=== PATIENT | female | born 1950 | race African-American/Black ===

== ENCOUNTER 2017-06-29 23:47 | Inpatient (IN) | payer MEDICARE, SELFPAY ==
[~2017-06-29] VITALS: Ht 165.1 cm; Wt 65.8 kg
[2017-06-30] VITALS (8 sets, daily range): BP systolic 103–161; BP diastolic 56–109
[2017-06-30] MEDS ORDERED: Haloperidol 5mg/ml Inj IM ONE (00:30)
[2017-06-30] MEDS ORDERED: LORazepam Inj 2mg/ml 1ml IM ONE (00:30)
[2017-06-30 02:26] LABS: HEMATOCRIT 42.1 % (37.0-47.0); HEMOGLOBIN 13.9 G/DL (12.0-16.0); MEAN CORPUSCULAR VOLUME 93 FL (80-99); PLATELET COUNT 77 K/UL (150-450); RED BLOOD COUNT 4.55 M/UL (4.20-5.40)
[2017-06-30 02:39] LABS: ANION GAP 8 mmol/L (5-15); BLOOD UREA NITROGEN 20 mg/dL (7-18); CALCIUM 8.9 MG/DL (8.5-10.1); CARBON DIOXIDE 26 MMOL/L (21-32); CHLORIDE 109 MMOL/L (98-107); CREATININE 1.1 MG/DL (0.55-1.30); POTASSIUM 3.3 MMOL/L (3.5-5.1); SODIUM 143 MMOL/L (136-145)
[2017-06-30 02:41] LABS: APPEARANCE,URINE CLEAR; BILIRUBIN, URINE NEGATIVE (NEGATIVE); COLOR,URINE PALE YELLOW; GLUCOSE, URINE (UA) NEGATIVE (NEGATIVE); KETONES,URINE NEGATIVE (NEGATIVE); LEUKOCYTE ESTERASE ,URINE NEGATIVE (NEGATIVE); NITRITE,URINE NEGATIVE (NEGATIVE); PH,URINE 7 (4.5-8.0); PROTEIN,URINE NEGATIVE (NEGATIVE); UROBILINOGEN,URINE NORMAL MG/DL (0.0-1.0)
[2017-06-30 02:52] LABS: ALANINE AMINOTRANSFERASE 39 U/L (12-78); ALBUMIN 2.5 G/DL (3.4-5.0); ALBUMIN/GLOBULIN RATIO 0.7 (1.0-2.7); ALKALINE PHOSPHATASE 124 U/L (46-116); ASPARTATE AMINO TRANSFERASE 35 U/L (15-37); BILIRUBIN,TOTAL 1.2 MG/DL (0.2-1.0); CREATINE KINASE 54 U/L (26-308)
[2017-06-30 02:54] LABS: BILIRUBIN,DIRECT 0.6 MG/DL (0.0-0.3)
[2017-06-30] MEDS ORDERED: Lactulose 20gm/30ml UDC ORAL ONE (03:00)
[2017-06-30] MEDS ORDERED: AMLODIPINE BES2.5 MG ORAL (03:55)
[2017-06-30] MEDS ORDERED: LEVOTHYROXINE25 MCG ORAL (03:55)
[2017-06-30] MEDS ORDERED: URSODIOL300 MG ORAL (03:55)
[2017-06-30] MEDS ORDERED: MYFORTIC180 MG PO (03:55)
[2017-06-30] MEDS ORDERED: DITROPAN10 MG ORAL (03:55)
[2017-06-30] MEDS ORDERED: ASPIR 8181 MG ORAL (03:55)
[2017-06-30] MEDS ORDERED: LACTULOSE20 GM/301 ORAL (03:57)
[2017-06-30] MEDS ORDERED: QUETIAPINE FUMA25 MG ORAL (03:57)
[2017-06-30] MEDS ORDERED: IRON159 MG PO (03:57)
[2017-06-30] MEDS ORDERED: OMEPRAZOLE40 M1 ORAL (03:58)
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
[2017-06-30] MEDS ORDERED: Morphine Sulfate 2mg/ml Inj IVP PRN (06:15)
[2017-06-30] MEDS ORDERED: Miralax 17gm pkt ORAL PRN (06:15)
[2017-06-30] MEDS ORDERED: Mylanta II UD 30ml ORAL PRN (06:15)
[2017-06-30] MEDS ORDERED: Nitroglycerin Subl 0.4mg tab SL PRN (06:15)
[2017-06-30] MEDS: D5 1/2NS 1,000 ML IV SCH ×2 (06:45→20:54)
[2017-06-30] MEDS: Levothyroxine 25mcg tab ORAL SCH (06:45)
[2017-06-30] MEDS ORDERED: Phytonadione 10 MG in D5W 55 ML IVPB ONE (07:30)
[2017-06-30] MEDS: Lactulose 20gm/30ml UDC ORAL SCH ×3 (09:00→18:00)
[2017-06-30] MEDS: Ursodiol 300mg cap ORAL SCH ×2 (09:00→18:00)
--- NOTE | 2017-06-30 10:33 | Consultation ---
Consult Note Consult Note ID DIC # [id number] MATILDE PAZ M.D. Jun 30, 2017 10:33
[2017-06-30 11:12] LABS: INR 1.1 (0.9-1.1)
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
--- NOTE | 2017-06-30 14:13 | Diagnostic Imaging Report ---
Indication: Shortness of breath Technique: One view of the chest Comparison: none Findings: Heart is enlarged. There are mitral annular calcifications. The aorta is tortuous and calcified. Lungs and pleural spaces are clear Impression: Cardiomegaly No acute process
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
[2017-06-30] MEDS: Aztreonam Inj 1 GM in NS 55 ML IVPB SCH ×2 (16:09→21:05)
--- NOTE | 2017-06-30 16:26 | Diagnostic Imaging Report ---
Indication: Suspected abdominal ascites, abdominal distention Technique: Grayscale images of all 4 quadrants in anticipation of paracentesis Comparison: none Findings: No ascites fluid is demonstrated Impression: Negative for ascites fluid. Paracentesis therefore not performed
--- NOTE | 2017-06-30 20:30 | Consultation ---
DATE OF CONSULTATION: 06/30/2017 INFECTIOUS DISEASE CONSULTATION CONSULTING PHYSICIAN: Stefan Shrestha M.D. REQUESTING PHYSICIAN: Samina Barrera M.D. REASON FOR CONSULTATION: Evaluation of the patient for possible sepsis, urinary tract infection, and antibiotic management. HISTORY OF PRESENT ILLNESS: The patient is a 66-year-old female with multiple medical problems, who was recently admitted at [facility] for urinary tract infection. She also has history of dementia. The patient was admitted to this medical center because of worsening of mental status, possible sepsis, and hepatic encephalopathy. Infectious Disease consultation has been requested for further evaluation of the patient's antibiotic management. PAST MEDICAL HISTORY: 1. Dementia. 2. Seizure disorder. 3. Hypertension. 4. Urinary tract infection. 5. Hypothyroidism. MEDICATIONS: Currently off of antibiotics. ALLERGIES: Azathioprine, cephalexin, cimetidine, and erythromycin. SOCIAL HISTORY: Unknown. FAMILY HISTORY: Not contributing. PHYSICAL EXAMINATION: VITAL SIGNS: Temperature 97.3, pulse , respiratory rate 18, and blood pressure 102/56. HEENT: Mild pale conjunctivae. No icterus. NECK: No lymphadenopathy. CHEST: Clear. HEART: S1 and S2. ABDOMEN: Soft and nontender. EXTREMITIES: No cyanosis. NEUROLOGIC: Confused. LABORATORY AND DIAGNOSTIC DATA: WBC of 5, hemoglobin 13, and platelets 77,000. BUN 20 and creatinine 1.1. ALT and AST unremarkable. Alkaline phosphatase 124. ASSESSMENT: The patient is a 66-year-old female with, 1. Probable sepsis. 2. History of recent urinary tract infection. 3. ? Hepatic encephalopathy. 4. History of primary biliary cirrhosis. PLAN: 1. We will put the patient on Azactam empirically for possible recurrent urinary tract infection despite of UA result. 2. Monitor CBC. 3. Monitor BMP. 4. Monitor cultures . 5. Abdominal ultrasound for evaluation of ascites. 6. Based on the patient's clinical course and labs, we will do further recommendation. Thank you, Dr. León for allowing me to participate in the care of this patient. I will follow the patient with you during this hospitalization. Stefan Shrestha M.D. DR: LUZ ELENA JOB#: [id number] CC: [email or web address]
[2017-07-01] VITALS: BP 129/86
[2017-07-01 04:00] VITALS: BP 139/77
[2017-07-01] MEDS: Aztreonam Inj 1 GM in NS 55 ML IVPB SCH ×3 (05:48→22:09)
[2017-07-01] MEDS: Levothyroxine 25mcg tab ORAL SCH (05:48)
--- NOTE | 2017-07-01 06:45 | History and Physical Report ---
DATE OF ADMISSION: 06/30/2017 CHIEF COMPLAINT: The patient is a 66-year-old female with history of primary biliary stenosis, who presents with a chief complaint of altered mental status. HISTORY OF PRESENT ILLNESS: The patient herself was unable to contribute much to the History and Physical. Much of the History and Physical was obtained from the patient's chart. Apparently, the patient was admitted to [facility] two weeks ago for urinary tract infection. The patient was discharged with Macrobid. The patient was also diagnosed with Lewy body dementia. According to the patient's daughter, her behavior has become increasingly bizarre. When the daughter returned yesterday, she found the house full of smoke as the patient tried to burn boxes in the oven. Today, she left the water running. The patient also put nail danish on her lips. The patient was brought to [place] emergency room by her daughter. The patient was admitted with altered mental status to rule out hepatic encephalopathy. PAST MEDICAL HISTORY: Significant for, 1. Primary biliary stenosis. 2. Lewy body dementia. 3. Hypertension. 4. Bipolar depression. PAST SURGICAL HISTORY: Unknown. CURRENT MEDICATIONS: 1. Amlodipine 2.5 mg p.o. daily. 2. Aspirin 81 mg p.o. daily. 3. Iron sulfate 159 mg p.o. daily. 4. Lactulose 30 g p.o. 3 times daily. 5. Levoxyl 25 mcg p.o. daily. 6. Myfortic 180 mg p.o. daily. 7. Omeprazole 40 mg p.o. daily. 8. Oxybutynin 10 mg p.o. twice daily. 9. Seroquel 25 mg p.o. daily. 10. Ursodiol 300 mg p.o. twice daily. ALLERGIES: 1. Azathioprine. 2. Cephalexin. 3. Cimetidine. 4. Erythromycin. SOCIAL HISTORY: The patient lives at home with her daughter. The patient denies tobacco or alcohol use. REVIEW OF SYSTEMS: Unable to assess secondary to the patient's mental status. PHYSICAL EXAMINATION: VITAL SIGNS: Temperature 97.9, respirations 14, pulse 73, and blood pressure 135/90. GENERAL: The patient is a well-developed and well-nourished female, who is confused. HEENT: Eyes, pupils are equal and responsive to light and accommodation. Extraocular movements are intact. NECK: Supple without lymphadenopathy. CHEST: Lungs are clear to auscultation bilaterally without wheezes or rales. CARDIOVASCULAR: Regular rhythm and rate. S1 and S2 are normal without murmurs, rubs, or gallops. ABDOMEN: Soft, nontender, and nondistended. Positive bowel sounds. No evidence of hepatosplenomegaly. Currently, no rebound or guarding noted. EXTREMITIES: Negative for clubbing, cyanosis, or edema. RECTAL/GENITAL: Refused. NEUROLOGIC: Cranial nerves II through XII are grossly intact without focal deficits. Motor strength is 5/5 bilaterally. Deep tendon reflexes are 2+ plantar. LABORATORY STUDIES: WBC 5.3, hemoglobin 13.9, hematocrit 42.1, and platelets 77,000. Sodium 143, potassium 3.3, chloride 109, CO2 of 26, BUN 20, creatinine 1.1, and glucose 88. Troponin 0.031. Total bilirubin 1.2 and direct bilirubin 0.6. Ammonia level is pending. ASSESSMENT: This is a 66-year-old female. 1. Altered mental status. 2. Primary biliary stenosis. 3. Lewy body dementia. 4. Hypertension. 5. Bipolar depression. TREATMENT: 1. Altered mental status/primary biliary stenosis. 1.1. Gastroenterology consultation is pending with Dr. Aubrey Nur. We will follow recommendations of Dr. Nur. 2. Lewy body dementia. 3. Hypertension. Continue Norvasc as above. 4. Bipolar depression. Continue Seroquel as above. Mikael Rowe M.D. DR: ALKA JOB#: [id number] CC:
[2017-07-01 08:15] VITALS: BP 109/62
[2017-07-01] MEDS: Ursodiol 300mg cap ORAL SCH ×3 (09:00→17:45)
[2017-07-01] MEDS: Lactulose 20gm/30ml UDC ORAL SCH ×3 (09:00→12:25)
[2017-07-01] MEDS: D5 1/2NS 1,000 ML IV SCH ×2 (10:05→23:00)
--- NOTE | 2017-07-01 11:24 | Pulmonology Progress Note ---
Assessment/Plan Problems: (1) Biliary cirrhosis (2) Acute hepatic encephalopathy (3) At high risk for aspiration (4) Alzheimer's dementia Assessment/Plan npo check cultures psych evaluation GI f/u social service f/u compatency ? Subjective ROS Limited/Unobtainable: No Allergies: Coded Allergies: AZATHIOPRINE (Verified Allergy, Unknown, Hives, 06/30/17) CEPHALEXIN (Unverified Allergy, Unknown, 06/29/17) CIMETIDINE (Verified Allergy, Unknown, Hives, 06/30/17) ERYTHROMYCIN BASE (Unverified Allergy, Unknown, 06/30/17) Shahid Keaton Syndrome Objective Last 24 Hour Vital Signs Date Time Temp Pulse Resp B/P (MAP) Pulse Ox O2 Delivery O2 Flow Rate FiO2 07/01/17 08:15 98.7 78 18 109/62 96 Room Air 07/01/17 04:00 97.7 71 20 139/77 80 07/01/17 00:00 97.0 72 20 129/86 95 06/30/17 20:00 97.1 19 161/77 90 06/30/17 16:08 98.7 79 21 133/84 97 Room Air 06/30/17 11:55 98.1 79 17 106/69 98 Room Air Intake and Output 06/30/17 07/01/17 19:00 07:00 Intake Total 880 ml 635 ml Balance 880 ml 635 ml IV Total 880 ml 635 ml # Voids 4 3 # Bowel Movements 1 General Appearance: cachetic HEENT: normocephalic, atraumatic Respiratory/Chest: chest wall non-tender, normal breath sounds Cardiovascular: normal peripheral pulses, normal rate Abdomen: soft, non tender, no organomegaly Genitourinary: normal external genitalia Extremities: no clubbing Skin: no rash, no lesions 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, no motor/sensory deficits, normal mood/affect Lymphatic: no neck adenopathy Microbiology Date/Time Source Procedure Growth Status 06/30/17 10:55 Urine,Clean Catch Urine Culture - Preliminary Mixed Urogenital Contaminants Resulted Current Medications Medications (Trade) Dose Ordered Sig/Raisa Route PRN Reason Start Time Stop Time Status Last Admin Dose Admin Acetaminophen (Tylenol) 650 mg Q4H PRN ORAL fever 06/30/17 06:15 07/30/17 06:14 Al Hydroxide/Mg Hydroxide (Mylanta II) 30 ml Q6H PRN ORAL dyspepsia 06/30/17 06:15 07/30/17 06:14 Amlodipine Besylate (Norvasc) 2.5 mg DAILY ORAL 06/30/17 09:00 07/30/17 08:59 Aztreonam 1 gm/ Sodium Chloride 55 ml @ 110 mls/hr Q8HR IVPB 06/30/17 14:00 07/07/17 13:59 07/01/17 05:48 Dextrose (Dextrose 50%) STAT PRN IV Hypoglycemia 06/30/17 06:15 07/30/17 06:14 Dextrose/Sodium Chloride 1,000 ml @ 75 mls/hr [id number] IV 06/30/17 07:00 07/30/17 06:59 07/01/17 10:05 Diphenhydramine HCl (Benadryl) 25 mg Q6H PRN ORAL Itching/Pruritis 06/30/17 06:15 07/30/17 06:14 Lactulose (Cephulac) 20 gm TID ORAL 06/30/17 09:00 07/30/17 08:59 06/30/17 18:00 Levothyroxine Sodium (Synthroid) 25 mcg DAILY@0630 ORAL 06/30/17 07:00 07/30/17 06:59 07/01/17 05:48 Morphine Sulfate (Morphine Sulfate) 2 mg Q4H PRN IVP severe Pain (Pain Scale 7-10) 06/30/17 06:15 07/07/17 06:14 Nitroglycerin (Ntg) 0.4 mg Q5M X 3 DOSES PRN SL Prn Chest Pain 06/30/17 06:15 07/30/17 06:14 Ondansetron HCl (Zofran) 4 mg Q6H PRN IVP Nausea & Vomiting 06/30/17 06:15 07/30/17 06:14 Polyethylene Glycol (Miralax) 17 gm HSPRN PRN ORAL Constipation 06/30/17 06:15 07/30/17 06:14 Quetiapine Fumarate (SEROquel) 25 mg DAILY ORAL 06/30/17 09:00 07/30/17 08:59 Rifaximin (Xifaxan) 550 mg EVERY 12 HOURS ORAL 06/30/17 21:00 07/07/17 20:59 06/30/17 21:05 Temazepam (Restoril) 15 mg HSPRN PRN ORAL Insomnia 06/30/17 06:15 07/07/17 06:14 Ursodiol (Actigall) 300 mg TWICE A DAY ORAL 06/30/17 09:00 07/30/17 08:59 06/30/17 18:00 AJIT HOLM Jul 01, 2017 11:24
[2017-07-01 11:50] VITALS: BP 129/67
[2017-07-01] MEDS ORDERED: Tubing IV Secondary IV ONE ×2 (15:04→15:12)
[2017-07-01] MEDS ORDERED: D5 1/2NS 1000ml IV ONE ×2 (15:04→15:12)
--- NOTE | 2017-07-01 15:32 | Internal Med Progress Note ---
Subjective Date of Service: Jul 01, 2017 Physician Name TinajeroEmil Attending Physician Adarsh León MD Current Medications Medications (Trade) Dose Ordered Sig/Raisa Route PRN Reason Start Time Stop Time Status Last Admin Dose Admin Acetaminophen (Tylenol) 650 mg Q4H PRN ORAL fever 06/30/17 06:15 07/30/17 06:14 Al Hydroxide/Mg Hydroxide (Mylanta II) 30 ml Q6H PRN ORAL dyspepsia 06/30/17 06:15 07/30/17 06:14 Amlodipine Besylate (Norvasc) 2.5 mg DAILY ORAL 06/30/17 09:00 07/30/17 08:59 Aztreonam 1 gm/ Sodium Chloride 55 ml @ 110 mls/hr Q8HR IVPB 06/30/17 14:00 07/07/17 13:59 07/01/17 15:08 Dextrose (Dextrose 50%) STAT PRN IV Hypoglycemia 06/30/17 06:15 07/30/17 06:14 Dextrose/Sodium Chloride 1,000 ml @ 75 mls/hr [id number] IV 06/30/17 07:00 07/30/17 06:59 07/01/17 10:05 Diphenhydramine HCl (Benadryl) 25 mg Q6H PRN ORAL Itching/Pruritis 06/30/17 06:15 07/30/17 06:14 Lactulose (Cephulac) 20 gm TID ORAL 06/30/17 09:00 07/30/17 08:59 07/01/17 12:25 Levothyroxine Sodium (Synthroid) 25 mcg DAILY@0630 ORAL 06/30/17 07:00 07/30/17 06:59 07/01/17 05:48 Morphine Sulfate (Morphine Sulfate) 2 mg Q4H PRN IVP severe Pain (Pain Scale 7-10) 06/30/17 06:15 07/07/17 06:14 Nitroglycerin (Ntg) 0.4 mg Q5M X 3 DOSES PRN SL Prn Chest Pain 06/30/17 06:15 07/30/17 06:14 Ondansetron HCl (Zofran) 4 mg Q6H PRN IVP Nausea & Vomiting 06/30/17 06:15 07/30/17 06:14 Polyethylene Glycol (Miralax) 17 gm HSPRN PRN ORAL Constipation 06/30/17 06:15 07/30/17 06:14 Quetiapine Fumarate (SEROquel) 25 mg DAILY ORAL 06/30/17 09:00 07/30/17 08:59 Rifaximin (Xifaxan) 550 mg EVERY 12 HOURS ORAL 06/30/17 21:00 07/07/17 20:59 06/30/17 21:05 Temazepam (Restoril) 15 mg HSPRN PRN ORAL Insomnia 06/30/17 06:15 07/07/17 06:14 Ursodiol (Actigall) 300 mg TWICE A DAY ORAL 06/30/17 09:00 07/30/17 08:59 06/30/17 18:00 Allergies: Coded Allergies: AZATHIOPRINE (Verified Allergy, Unknown, Hives, 06/30/17) CEPHALEXIN (Unverified Allergy, Unknown, 06/29/17) CIMETIDINE (Verified Allergy, Unknown, Hives, 06/30/17) ERYTHROMYCIN BASE (Unverified Allergy, Unknown, 06/30/17) Shahid Keaton Syndrome ROS Limited/Unobtainable: Yes Subjective 66 YO M admitted with chief complaint altered mental status. Now hepatic encephalopathy. Cover for Int Med-Sr Mau. Objective Last Vital Signs Date Time Temp Pulse Resp B/P (MAP) Pulse Ox O2 Delivery O2 Flow Rate FiO2 07/01/17 11:50 98.8 70 18 129/67 100 Room Air General Appearance: WD/WN, no apparent distress, other EENT: PERRL/EOMI, normal ENT inspection Neck: non-tender, normal alignment, supple, normal inspection Cardiovascular: normal peripheral pulses, normal rate, regular rhythm, no gallop/murmur, no JVD Respiratory/Chest: chest wall non-tender, lungs clear, normal breath sounds, no respiratory distress, no accessory muscle use Abdomen: no organomegaly, no mass, decreased bowel sounds, distended, guarding Extremities: normal range of motion, non-tender 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, no motor/sensory deficits Skin: normal pigmentation, warm/dry Microbiology Date/Time Source Procedure Growth Status 06/30/17 10:55 Urine,Clean Catch Urine Culture - Preliminary Mixed Urogenital Contaminants Resulted Intake and Output 06/30/17 07/01/17 19:00 07:00 Intake Total 880 ml 635 ml Balance 880 ml 635 ml IV Total 880 ml 635 ml # Voids 4 3 # Bowel Movements 1 Assessment/Plan Problem List: (1) HTN (hypertension) Assessment & Plan: Continue norvasc (2) Lewy body dementia (3) Bipolar 1 disorder Assessment & Plan: Continue seroquel (4) Elevated liver function tests Assessment & Plan: Liver ultrasound=no ascites. (5) Acute hepatic encephalopathy Assessment & Plan: See GI note. (6) Biliary cirrhosis (7) Hypothyroidism Assessment & Plan: continue synthroid Status: not improved EMIL TINAJERO Jul 01, 2017 15:32
[2017-07-01 16:00] VITALS: BP 114/68
--- NOTE | 2017-07-01 17:36 | General Progress Note ---
Assessment/Plan Assessment/Plan Assessment - Biliary Cirrhosis - dark emesis - Lewy Body Dementia - HTN - elevated NH3, hepatic encephalopathy Recommendations - NPO - check labs - continue xifaxan - hold lactulose - consider EGD Monday Subjective Allergies: Coded Allergies: AZATHIOPRINE (Verified Allergy, Unknown, Hives, 06/30/17) CEPHALEXIN (Unverified Allergy, Unknown, 06/29/17) CIMETIDINE (Verified Allergy, Unknown, Hives, 06/30/17) ERYTHROMYCIN BASE (Unverified Allergy, Unknown, 06/30/17) Shahid Keaton Syndrome Subjective d/w RN patient non communicative first refused lactulose then she vomited dark material Objective Last 24 Hour Vital Signs Date Time Temp Pulse Resp B/P (MAP) Pulse Ox O2 Delivery O2 Flow Rate FiO2 07/01/17 16:00 97.7 83 20 114/68 98 07/01/17 11:50 98.8 70 18 129/67 100 Room Air 07/01/17 08:15 98.7 78 18 109/62 96 Room Air 07/01/17 04:00 97.7 71 20 139/77 80 07/01/17 00:00 97.0 72 20 129/86 95 06/30/17 20:00 97.1 19 161/77 90 Intake and Output 06/30/17 07/01/17 19:00 07:00 Intake Total 880 ml 635 ml Balance 880 ml 635 ml IV Total 880 ml 635 ml # Voids 4 3 # Bowel Movements 1 Height (Feet): 5 Height (Inches): 5.00 Weight (Pounds): 145 Objective calm NCAT supple CTA RRR soft ND NT no edema SAEED PERRY Jul 01, 2017 17:35
[2017-07-01] MEDS: Pantoprazole Inj IVP SCH (17:45)
[2017-07-01 18:50] LABS: HEMATOCRIT 47.5 % (37.0-47.0); HEMOGLOBIN 14.9 G/DL (12.0-16.0); MEAN CORPUSCULAR VOLUME 94 FL (80-99); PLATELET COUNT 81 K/UL (150-450); RED BLOOD COUNT 5.04 M/UL (4.20-5.40); RED CELL DISTRIBUTION WIDTH 16.1 % (11.6-14.8)
[2017-07-01 18:55] LABS: ALANINE AMINOTRANSFERASE 32 U/L (12-78); ALBUMIN 2.6 G/DL (3.4-5.0); ALBUMIN/GLOBULIN RATIO 0.7 (1.0-2.7); ALKALINE PHOSPHATASE 138 U/L (46-116); ANION GAP 12 mmol/L (5-15); ASPARTATE AMINO TRANSFERASE 39 U/L (15-37); BILIRUBIN,DIRECT 0.6 MG/DL (0.0-0.3); BILIRUBIN,TOTAL 1.6 MG/DL (0.2-1.0); BLOOD UREA NITROGEN 12 mg/dL (7-18); CALCIUM 8.9 MG/DL (8.5-10.1); CARBON DIOXIDE 25 MMOL/L (21-32); CHLORIDE 109 MMOL/L (98-107); CREATININE 1.2 MG/DL (0.55-1.30); POTASSIUM 2.8 MMOL/L (3.5-5.1); SODIUM 146 MMOL/L (136-145)
[2017-07-01 20:00] VITALS: BP 139/76
[2017-07-01] MEDS ORDERED: Potassium Chloride 40 MEQ in Sodium Chloride 500ML 550 ML IVPB ONE (21:00)
[2017-07-02] VITALS: BP 130/89
[2017-07-02 04:00] VITALS: BP 125/76
[2017-07-02] MEDS: Aztreonam Inj 1 GM in NS 55 ML IVPB SCH (05:34)
[2017-07-02] MEDS: Levothyroxine 25mcg tab ORAL SCH (05:35)
[2017-07-02 08:09] VITALS: BP 104/56
[2017-07-02] MEDS: Pantoprazole Inj IVP SCH (08:47)
[2017-07-02] MEDS: D5 1/2NS 1,000 ML IV SCH ×2 (08:47→12:08)
[2017-07-02 09:10] LABS: HEMATOCRIT 39.8 % (37.0-47.0); HEMOGLOBIN 13.2 G/DL (12.0-16.0); MEAN CORPUSCULAR VOLUME 94 FL (80-99); PLATELET COUNT 72 K/UL (150-450); RED BLOOD COUNT 4.24 M/UL (4.20-5.40); RED CELL DISTRIBUTION WIDTH 16.1 % (11.6-14.8); WHITE BLOOD COUNT 4.5 K/UL (4.8-10.8)
[2017-07-02 09:14] LABS: INR 1.2 (0.9-1.1)
[2017-07-02 09:33] LABS: ALANINE AMINOTRANSFERASE 24 U/L (12-78); ALBUMIN/GLOBULIN RATIO 0.6 (1.0-2.7); ALKALINE PHOSPHATASE 107 U/L (46-116); ANION GAP 7 mmol/L (5-15); ASPARTATE AMINO TRANSFERASE 32 U/L (15-37); BILIRUBIN,TOTAL 1.4 MG/DL (0.2-1.0); BLOOD UREA NITROGEN 10 mg/dL (7-18); CALCIUM 7.8 MG/DL (8.5-10.1); CARBON DIOXIDE 24 MMOL/L (21-32); CHLORIDE 112 MMOL/L (98-107); POTASSIUM 3.6 MMOL/L (3.5-5.1); SODIUM 143 MMOL/L (136-145)
--- NOTE | 2017-07-02 09:33 | Infectious Diseases Prog Note ---
Assessment/Plan Assessment/Plan ASSESSMENT: The patient is a 66-year-old female with, doubt sepsis at this time ? UTI UCx :mixed growth GNR History of recent urinary tract infection ALOC Abdominal ultrasound : no ascites ? Hepatic encephalopathy History of primary biliary cirrhosis Dementia Seizure disorder Hypertension Hypothyroidism PLAN: DC Azactam d# 3 Monitor CBC Monitor BMP. Monitor cultures ( Bl ) Subjective Constitutional: Denies: no symptoms, fever, chills, fatigue, anorexia, drenching sweats, other Allergies: Coded Allergies: AZATHIOPRINE (Verified Allergy, Unknown, Hives, 06/30/17) CEPHALEXIN (Unverified Allergy, Unknown, 06/29/17) CIMETIDINE (Verified Allergy, Unknown, Hives, 06/30/17) ERYTHROMYCIN BASE (Unverified Allergy, Unknown, 06/30/17) Shahid Keaton Syndrome Objective Vital Signs Last 24 Hour Vital Signs Date Time Temp Pulse Resp B/P (MAP) Pulse Ox O2 Delivery O2 Flow Rate FiO2 07/02/17 08:46 82 104/56 07/02/17 08:09 97.6 82 18 104/56 96 Room Air 07/02/17 04:00 98.1 71 20 125/76 96 07/02/17 00:00 98.2 77 19 130/89 97 07/01/17 20:00 98.9 79 19 139/76 96 07/01/17 16:00 97.7 83 20 114/68 98 07/01/17 11:50 98.8 70 18 129/67 100 Room Air Height (Feet): 5 Height (Inches): 5.00 Weight (Pounds): 145 HEENT: anicteric Respiratory/Chest: normal breath sounds Cardiovascular: normal rate Abdomen: non distended Microbiology Date/Time Source Procedure Growth Status 06/30/17 10:55 Urine,Clean Catch Urine Culture - Preliminary Mixed Urogenital Contaminants Resulted Laboratory Tests Test 07/02/17 06:24 White Blood Count 4.5 K/UL (4.8-10.8) L Red Blood Count 4.24 M/UL (4.20-5.40) Hemoglobin 13.2 G/DL (12.0-16.0) Hematocrit 39.8 % (37.0-47.0) Mean Corpuscular Volume 94 FL (80-99) Mean Corpuscular Hemoglobin 31.1 PG (27.0-31.0) H Mean Corpuscular Hemoglobin Concent 33.1 G/DL (32.0-36.0) Red Cell Distribution Width 16.1 % (11.6-14.8) H Platelet Count 72 K/UL (150-450) L Mean Platelet Volume 7.9 FL (6.5-10.1) Neutrophils (%) (Auto) % (45.0-75.0) Lymphocytes (%) (Auto) % (20.0-45.0) Monocytes (%) (Auto) % (1.0-10.0) Eosinophils (%) (Auto) % (0.0-3.0) Basophils (%) (Auto) % (0.0-2.0) Neutrophils % (Manual) Pending Lymphocytes % (Manual) Pending Platelet Estimate Pending Platelet Morphology Pending Prothrombin Time Pending Prothromb Time International Ratio Pending Activated Partial Thromboplast Time Pending Sodium Level Pending Potassium Level Pending Chloride Level Pending Carbon Dioxide Level Pending Blood Urea Nitrogen Pending Creatinine Pending Estimat Glomerular Filtration Rate Pending Glucose Level Pending Calcium Level Pending Phosphorus Level Pending Magnesium Level Pending Total Bilirubin Pending Aspartate Amino Transf (AST/SGOT) Pending Alanine Aminotransferase (ALT/SGPT) Pending Alkaline Phosphatase Pending Total Protein Pending Albumin Pending Globulin Pending Current Medications Medications (Trade) Dose Ordered Sig/Raisa Route PRN Reason Start Time Stop Time Status Last Admin Dose Admin Acetaminophen (Tylenol) 650 mg Q4H PRN ORAL fever 06/30/17 06:15 07/30/17 06:14 Al Hydroxide/Mg Hydroxide (Mylanta II) 30 ml Q6H PRN ORAL dyspepsia 06/30/17 06:15 07/30/17 06:14 Amlodipine Besylate (Norvasc) 2.5 mg DAILY ORAL 06/30/17 09:00 07/30/17 08:59 Aztreonam 1 gm/ Sodium Chloride 55 ml @ 110 mls/hr Q8HR IVPB 06/30/17 14:00 07/07/17 13:59 07/02/17 05:34 Dextrose (Dextrose 50%) STAT PRN IV Hypoglycemia 06/30/17 06:15 07/30/17 06:14 Dextrose/Sodium Chloride 1,000 ml @ 75 mls/hr [id number] IV 06/30/17 07:00 07/30/17 06:59 07/02/17 08:47 Diphenhydramine HCl (Benadryl) 25 mg Q6H PRN ORAL Itching/Pruritis 06/30/17 06:15 07/30/17 06:14 Levothyroxine Sodium (Synthroid) 25 mcg DAILY@0630 ORAL 06/30/17 07:00 07/30/17 06:59 07/02/17 05:35 Nitroglycerin (Ntg) 0.4 mg Q5M X 3 DOSES PRN SL Prn Chest Pain 06/30/17 06:15 07/30/17 06:14 Ondansetron HCl (Zofran) 4 mg Q6H PRN IVP Nausea & Vomiting 06/30/17 06:15 07/30/17 06:14 07/01/17 15:44 Pantoprazole (Protonix) 40 mg DAILY IVP 07/01/17 16:30 07/31/17 16:29 07/02/17 08:47 Polyethylene Glycol (Miralax) 17 gm HSPRN PRN ORAL Constipation 06/30/17 06:15 07/30/17 06:14 Quetiapine Fumarate (SEROquel) 25 mg DAILY ORAL 06/30/17 09:00 07/30/17 08:59 Rifaximin (Xifaxan) 550 mg EVERY 12 HOURS ORAL 06/30/17 21:00 07/07/17 20:59 07/01/17 21:34 Temazepam (Restoril) 15 mg HSPRN PRN ORAL Insomnia 06/30/17 06:15 07/07/17 06:14 07/01/17 22:09 Ursodiol (Actigall) 300 mg TWICE A DAY ORAL 06/30/17 09:00 07/30/17 08:59 07/01/17 17:45 MATILDE PAZ M.D. Jul 02, 2017 09:33
[2017-07-02 09:34] LABS: BILIRUBIN,DIRECT 0.5 MG/DL (0.0-0.3)
[2017-07-02] MEDS: Ursodiol 300mg cap ORAL SCH ×2 (10:32→17:14)
[2017-07-02 12:00] VITALS: BP 126/66
[2017-07-02 15:49] VITALS: BP 124/74
--- NOTE | 2017-07-02 17:10 | Internal Med Progress Note ---
Subjective Physician Name Emil Tinajero Attending Physician Adarsh León MD Current Medications Medications (Trade) Dose Ordered Sig/Raisa Route PRN Reason Start Time Stop Time Status Last Admin Dose Admin Acetaminophen (Tylenol) 650 mg Q4H PRN ORAL fever 06/30/17 06:15 07/30/17 06:14 Al Hydroxide/Mg Hydroxide (Mylanta II) 30 ml Q6H PRN ORAL dyspepsia 06/30/17 06:15 07/30/17 06:14 Amlodipine Besylate (Norvasc) 2.5 mg DAILY ORAL 06/30/17 09:00 07/30/17 08:59 Dextrose (Dextrose 50%) STAT PRN IV Hypoglycemia 06/30/17 06:15 07/30/17 06:14 Dextrose/Sodium Chloride 1,000 ml @ 75 mls/hr [id number] IV 06/30/17 07:00 07/30/17 06:59 07/02/17 08:47 Diphenhydramine HCl (Benadryl) 25 mg Q6H PRN ORAL Itching/Pruritis 06/30/17 06:15 07/30/17 06:14 Levothyroxine Sodium (Synthroid) 25 mcg DAILY@0630 ORAL 06/30/17 07:00 07/30/17 06:59 07/02/17 05:35 Nitroglycerin (Ntg) 0.4 mg Q5M X 3 DOSES PRN SL Prn Chest Pain 06/30/17 06:15 07/30/17 06:14 Ondansetron HCl (Zofran) 4 mg Q6H PRN IVP Nausea & Vomiting 06/30/17 06:15 07/30/17 06:14 07/01/17 15:44 Pantoprazole (Protonix) 40 mg DAILY IVP 07/01/17 16:30 07/31/17 16:29 07/02/17 08:47 Polyethylene Glycol (Miralax) 17 gm HSPRN PRN ORAL Constipation 06/30/17 06:15 07/30/17 06:14 Quetiapine Fumarate (SEROquel) 25 mg DAILY ORAL 06/30/17 09:00 07/30/17 08:59 07/02/17 10:32 Rifaximin (Xifaxan) 550 mg EVERY 12 HOURS ORAL 06/30/17 21:00 07/07/17 20:59 07/02/17 10:32 Temazepam (Restoril) 15 mg HSPRN PRN ORAL Insomnia 06/30/17 06:15 07/07/17 06:14 07/01/17 22:09 Ursodiol (Actigall) 300 mg TWICE A DAY ORAL 06/30/17 09:00 07/30/17 08:59 07/02/17 10:32 Allergies: Coded Allergies: AZATHIOPRINE (Verified Allergy, Unknown, Hives, 06/30/17) CEPHALEXIN (Unverified Allergy, Unknown, 06/29/17) CIMETIDINE (Verified Allergy, Unknown, Hives, 06/30/17) ERYTHROMYCIN BASE (Unverified Allergy, Unknown, 06/30/17) Shahid Keaton Syndrome Subjective 66 YO M admitted with chief complaint altered mental status. Now hepatic encephalopathy. Cover for Int Med-Sr Mau. Objective Last Vital Signs Date Time Temp Pulse Resp B/P (MAP) Pulse Ox O2 Delivery O2 Flow Rate FiO2 07/02/17 15:49 97.8 68 18 124/74 93 Room Air Laboratory Tests Test 07/02/17 06:24 White Blood Count 4.5 K/UL (4.8-10.8) L Red Blood Count 4.24 M/UL (4.20-5.40) Hemoglobin 13.2 G/DL (12.0-16.0) Hematocrit 39.8 % (37.0-47.0) Mean Corpuscular Volume 94 FL (80-99) Mean Corpuscular Hemoglobin 31.1 PG (27.0-31.0) H Mean Corpuscular Hemoglobin Concent 33.1 G/DL (32.0-36.0) Red Cell Distribution Width 16.1 % (11.6-14.8) H Platelet Count 72 K/UL (150-450) L Mean Platelet Volume 7.9 FL (6.5-10.1) Neutrophils (%) (Auto) % (45.0-75.0) Lymphocytes (%) (Auto) % (20.0-45.0) Monocytes (%) (Auto) % (1.0-10.0) Eosinophils (%) (Auto) % (0.0-3.0) Basophils (%) (Auto) % (0.0-2.0) Differential Total Cells Counted 100 Neutrophils % (Manual) 51 % (45-75) Lymphocytes % (Manual) 34 % (20-45) Monocytes % (Manual) 11 % (1-10) H Eosinophils % (Manual) 4 % (0-3) H Basophils % (Manual) 0 % (0-2) Band Neutrophils 0 % (0-8) Platelet Estimate Decreased L Platelet Morphology Normal Red Blood Cell Morphology Normal Prothrombin Time 12.6 SEC (9.30-11.50) H Prothromb Time International Ratio 1.2 (0.9-1.1) H Activated Partial Thromboplast Time 33 SEC (23-33) Sodium Level 143 MMOL/L (136-145) Potassium Level 3.6 MMOL/L (3.5-5.1) Chloride Level 112 MMOL/L (98-107) H Carbon Dioxide Level 24 MMOL/L (21-32) Anion Gap 7 mmol/L (5-15) Blood Urea Nitrogen 10 mg/dL (7-18) Creatinine 1.0 MG/DL (0.55-1.30) Estimat Glomerular Filtration Rate > 60 mL/min (>60) Glucose Level 76 MG/DL (74-106) Calcium Level 7.8 MG/DL (8.5-10.1) L Phosphorus Level 2.0 MG/DL (2.5-4.9) L Magnesium Level 1.5 MG/DL (1.8-2.4) L Total Bilirubin 1.4 MG/DL (0.2-1.0) H Direct Bilirubin 0.5 MG/DL (0.0-0.3) H Aspartate Amino Transf (AST/SGOT) 32 U/L (15-37) Alanine Aminotransferase (ALT/SGPT) 24 U/L (12-78) Alkaline Phosphatase 107 U/L (46-116) Total Protein 5.3 G/DL (6.4-8.2) L Albumin 2.0 G/DL (3.4-5.0) L Globulin 3.3 g/dL Albumin/Globulin Ratio 0.6 (1.0-2.7) L Microbiology Date/Time Source Procedure Growth Status 06/30/17 06:00 Nasal Nares MRSA Culture - Final NO METHICILLIN RESISTANT STAPH AUREUS... Complete 06/30/17 10:55 Urine,Clean Catch Urine Culture - Preliminary Mixed Urogenital Contaminants Resulted 2/9/18 06:00 Rectum VRE Culture - Final Enterococcus Faecalis - Vre Complete Intake and Output 07/01/17 07/02/17 19:00 07:00 Intake Total 350 ml 655 ml Balance 350 ml 655 ml Intake Oral 350 ml IV Total 655 ml # Voids 4 2 # Bowel Movements 1 Objective General Appearance: WD/WN, no apparent distress, other EENT: PERRL/EOMI, normal ENT inspection Neck: non-tender, normal alignment, supple, normal inspection Cardiovascular: normal peripheral pulses, normal rate, regular rhythm, no gallop/murmur, no JVD Respiratory/Chest: chest wall non-tender, lungs clear, normal breath sounds, no respiratory distress, no accessory muscle use Abdomen: no organomegaly, no mass, decreased bowel sounds, distended, guarding Extremities: normal range of motion, non-tender 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 (5) Acute hepatic encephalopathy Assessment & Plan: Worsening ammonia level. See GI note. (6) Biliary cirrhosis (7) Hypothyroidism Assessment & Plan: continue synthroid Status: not improved EMIL TINAJERO Jul 02, 2017 17:10
--- NOTE | 2017-07-02 19:54 | General Progress Note ---
Assessment/Plan Assessment/Plan Assessment - Biliary Cirrhosis - resolved N/V - Lewy Body Dementia - HTN - elevated NH3, hepatic encephalopathy Recommendations - advance diet - check labs - continue xifaxan - hold lactulose Subjective Allergies: Coded Allergies: AZATHIOPRINE (Verified Allergy, Unknown, Hives, 06/30/17) CEPHALEXIN (Unverified Allergy, Unknown, 06/29/17) CIMETIDINE (Verified Allergy, Unknown, Hives, 06/30/17) ERYTHROMYCIN BASE (Unverified Allergy, Unknown, 06/30/17) Shahid Keaton Syndrome Subjective no new complaints no abd pain Objective Last 24 Hour Vital Signs Date Time Temp Pulse Resp B/P (MAP) Pulse Ox O2 Delivery O2 Flow Rate FiO2 07/02/17 15:49 97.8 68 18 124/74 93 Room Air 07/02/17 15:49 Room Air 07/02/17 12:00 Room Air 07/02/17 12:00 97.7 67 18 126/66 93 Room Air 07/02/17 08:46 82 104/56 07/02/17 08:09 Room Air 07/02/17 08:09 97.6 82 18 104/56 96 Room Air 07/02/17 04:00 98.1 71 20 125/76 96 07/02/17 00:00 98.2 77 19 130/89 97 07/01/17 20:00 98.9 79 19 139/76 96 Intake and Output 07/01/17 07/02/17 19:00 07:00 Intake Total 350 ml 655 ml Balance 350 ml 655 ml Intake Oral 350 ml IV Total 655 ml # Voids 4 2 # Bowel Movements 1 Laboratory Tests 07/02/17 06:24: White Blood Count 4.5L, Red Blood Count 4.24, Hemoglobin 13.2, Hematocrit 39.8, Mean Corpuscular Volume 94, Mean Corpuscular Hemoglobin 31.1H, Mean Corpuscular Hemoglobin Concent 33.1, Red Cell Distribution Width 16.1H, Platelet Count 72L, Mean Platelet Volume 7.9, Neutrophils (%) (Auto) , Lymphocytes (%) (Auto) , Monocytes (%) (Auto) , Eosinophils (%) (Auto) , Basophils (%) (Auto) , Differential Total Cells Counted 100, Neutrophils % (Manual) 51, Lymphocytes % ( Manual) 34, Monocytes % (Manual) 11H, Eosinophils % (Manual) 4H, Basophils % ( Manual) 0, Band Neutrophils 0, Platelet Estimate DecreasedL, Platelet Morphology Normal, Red Blood Cell Morphology Normal, Prothrombin Time 12.6H, Prothromb Time International Ratio 1.2H, Activated Partial Thromboplast Time 33 , Sodium Level 143, Potassium Level 3.6, Chloride Level 112H, Carbon Dioxide Level 24, Anion Gap 7, Blood Urea Nitrogen 10, Creatinine 1.0, Estimat Glomerular Filtration Rate > 60, Glucose Level 76, Calcium Level 7.8L, Phosphorus Level 2.0L, Magnesium Level 1.5L, Total Bilirubin 1.4H, Direct Bilirubin 0.5H, Aspartate Amino Transf (AST/SGOT) 32, Alanine Aminotransferase ( ALT/SGPT) 24, Alkaline Phosphatase 107, Total Protein 5.3L, Albumin 2.0L, Globulin 3.3, Albumin/Globulin Ratio 0.6L Height (Feet): 5 Height (Inches): 5.00 Weight (Pounds): 145 Objective calm NCAT supple CTA RRR soft ND NT no edema SAEED PERRY Jul 02, 2017 19:54
[2017-07-02 20:00] VITALS: BP 141/72
--- NOTE | 2017-07-02 22:57 | General Progress Note ---
Assessment/Plan Status: stable, progressing Assessment/Plan encephalopathy due to gmc -seroquel 25mg daily Subjective Date patient seen: Jul 02, 2017 Neurologic/Psychiatric: Reports: anxiety, emotional problems Allergies: Coded Allergies: AZATHIOPRINE (Verified Allergy, Unknown, Hives, 06/30/17) CEPHALEXIN (Unverified Allergy, Unknown, 06/29/17) CIMETIDINE (Verified Allergy, Unknown, Hives, 06/30/17) ERYTHROMYCIN BASE (Unverified Allergy, Unknown, 06/30/17) Shahid Keaton Syndrome Objective Last 24 Hour Vital Signs Date Time Temp Pulse Resp B/P (MAP) Pulse Ox O2 Delivery O2 Flow Rate FiO2 07/02/17 20:00 98.1 77 20 141/72 90 07/02/17 15:49 97.8 68 18 124/74 93 Room Air 07/02/17 15:49 Room Air 07/02/17 12:00 Room Air 07/02/17 12:00 97.7 67 18 126/66 93 Room Air 07/02/17 08:46 82 104/56 07/02/17 08:09 Room Air 07/02/17 08:09 97.6 82 18 104/56 96 Room Air 07/02/17 04:00 98.1 71 20 125/76 96 07/02/17 00:00 98.2 77 19 130/89 97 Intake and Output 07/01/17 07/02/17 19:00 07:00 Intake Total 350 ml 655 ml Balance 350 ml 655 ml Intake Oral 350 ml IV Total 655 ml # Voids 4 2 # Bowel Movements 1 Laboratory Tests 07/02/17 06:24: White Blood Count 4.5L, Red Blood Count 4.24, Hemoglobin 13.2, Hematocrit 39.8, Mean Corpuscular Volume 94, Mean Corpuscular Hemoglobin 31.1H, Mean Corpuscular Hemoglobin Concent 33.1, Red Cell Distribution Width 16.1H, Platelet Count 72L, Mean Platelet Volume 7.9, Neutrophils (%) (Auto) , Lymphocytes (%) (Auto) , Monocytes (%) (Auto) , Eosinophils (%) (Auto) , Basophils (%) (Auto) , Differential Total Cells Counted 100, Neutrophils % (Manual) 51, Lymphocytes % ( Manual) 34, Monocytes % (Manual) 11H, Eosinophils % (Manual) 4H, Basophils % ( Manual) 0, Band Neutrophils 0, Platelet Estimate DecreasedL, Platelet Morphology Normal, Red Blood Cell Morphology Normal, Prothrombin Time 12.6H, Prothromb Time International Ratio 1.2H, Activated Partial Thromboplast Time 33 , Sodium Level 143, Potassium Level 3.6, Chloride Level 112H, Carbon Dioxide Level 24, Anion Gap 7, Blood Urea Nitrogen 10, Creatinine 1.0, Estimat Glomerular Filtration Rate > 60, Glucose Level 76, Calcium Level 7.8L, Phosphorus Level 2.0L, Magnesium Level 1.5L, Total Bilirubin 1.4H, Direct Bilirubin 0.5H, Aspartate Amino Transf (AST/SGOT) 32, Alanine Aminotransferase ( ALT/SGPT) 24, Alkaline Phosphatase 107, Total Protein 5.3L, Albumin 2.0L, Globulin 3.3, Albumin/Globulin Ratio 0.6L Height (Feet): 5 Height (Inches): 5.00 Weight (Pounds): 145 General Appearance: no apparent distress, alert, confused Neurologic: disoriented, depressed affect Matt Oconnor M.D. Jul 02, 2017 22:57
--- NOTE | 2017-07-02 22:57 | Consultation ---
History of Present Illness General Date patient seen: Jun 30, 2017 Chief Complaint: Altered Level of Consciousness Referring physician: EMILY HERNANDEZ Reason for Consultation: FRANTZ de jesus Present Illness HPI 66-year-old female with history of primary biliary stenosis, who presents with a chief complaint of altered mental status. the pt pw waxing and waning of consciousness. The pt has poor cognition and is a poor historian. the pt has been agitated Allergies: Coded Allergies: AZATHIOPRINE (Verified Allergy, Unknown, Hives, 06/30/17) CEPHALEXIN (Unverified Allergy, Unknown, 06/29/17) CIMETIDINE (Verified Allergy, Unknown, Hives, 06/30/17) ERYTHROMYCIN BASE (Unverified Allergy, Unknown, 06/30/17) Shahid Keaton Syndrome Medication History Scheduled Amlodipine Besylate* (Amlodipine Besylate*), 2.5 MG ORAL DAILY, (Reported) Aspirin* (Aspir 81*), 81 MG ORAL DAILY, (Reported) Lactulose (Lactulose*), 30 ML ORAL TID, (Reported) Levothyroxine Sodium* (Levothyroxine Sodium*), 25 MCG ORAL DAILY, (Reported) Omeprazole (Omeprazole), 40 MG ORAL DAILY, (Reported) Oxybutynin Chloride (Oxybutynin Chloride), 10 MG ORAL BID, (Reported) Quetiapine Fumarate* (Seroquel*), 25 MG ORAL DAILY, (Reported) Ursodiol (Ursodiol*), 300 MG ORAL TWICE A DAY, (Reported) Miscellaneous Medications Ferrous Sulfate, Dried (Iron), 159 MG PO, (Reported) Mycophenolate Sodium (Myfortic), 180 MG PO, (Reported) Patient History History Provided By: Patient, Medical Record, PMD Healthcare decision maker Resuscitation status Full Code Advanced Directive on File No Past Medical/Surgical History Past Medical/Surgical History: (1) Acute hepatic encephalopathy (2) Biliary cirrhosis (3) Alzheimer's dementia (4) At high risk for aspiration (5) HTN (hypertension) (6) Elevated liver function tests (7) Lewy body dementia (8) Bipolar 1 disorder (9) Hypothyroidism Review of Systems Psychiatric: Reports: prior hx, anxiety, depressed feelings, emotional problems Physical Exam General Appearance: no apparent distress, alert, confused, agitated Last 24 Hour Vital Signs Date Time Temp Pulse Resp B/P (MAP) Pulse Ox O2 Delivery O2 Flow Rate FiO2 07/02/17 20:00 98.1 77 20 141/72 90 07/02/17 15:49 97.8 68 18 124/74 93 Room Air 07/02/17 15:49 Room Air 07/02/17 12:00 Room Air 07/02/17 12:00 97.7 67 18 126/66 93 Room Air 07/02/17 08:46 82 104/56 07/02/17 08:09 Room Air 07/02/17 08:09 97.6 82 18 104/56 96 Room Air 07/02/17 04:00 98.1 71 20 125/76 96 07/02/17 00:00 98.2 77 19 130/89 97 Intake and Output 07/01/17 07/02/17 19:00 07:00 Intake Total 350 ml 655 ml Balance 350 ml 655 ml Intake Oral 350 ml IV Total 655 ml # Voids 4 2 # Bowel Movements 1 Laboratory Tests Test 07/02/17 06:24 White Blood Count 4.5 K/UL (4.8-10.8) L Red Blood Count 4.24 M/UL (4.20-5.40) Hemoglobin 13.2 G/DL (12.0-16.0) Hematocrit 39.8 % (37.0-47.0) Mean Corpuscular Volume 94 FL (80-99) Mean Corpuscular Hemoglobin 31.1 PG (27.0-31.0) H Mean Corpuscular Hemoglobin Concent 33.1 G/DL (32.0-36.0) Red Cell Distribution Width 16.1 % (11.6-14.8) H Platelet Count 72 K/UL (150-450) L Mean Platelet Volume 7.9 FL (6.5-10.1) Neutrophils (%) (Auto) % (45.0-75.0) Lymphocytes (%) (Auto) % (20.0-45.0) Monocytes (%) (Auto) % (1.0-10.0) Eosinophils (%) (Auto) % (0.0-3.0) Basophils (%) (Auto) % (0.0-2.0) Differential Total Cells Counted 100 Neutrophils % (Manual) 51 % (45-75) Lymphocytes % (Manual) 34 % (20-45) Monocytes % (Manual) 11 % (1-10) H Eosinophils % (Manual) 4 % (0-3) H Basophils % (Manual) 0 % (0-2) Band Neutrophils 0 % (0-8) Platelet Estimate Decreased L Platelet Morphology Normal Red Blood Cell Morphology Normal Prothrombin Time 12.6 SEC (9.30-11.50) H Prothromb Time International Ratio 1.2 (0.9-1.1) H Activated Partial Thromboplast Time 33 SEC (23-33) Sodium Level 143 MMOL/L (136-145) Potassium Level 3.6 MMOL/L (3.5-5.1) Chloride Level 112 MMOL/L (98-107) H Carbon Dioxide Level 24 MMOL/L (21-32) Anion Gap 7 mmol/L (5-15) Blood Urea Nitrogen 10 mg/dL (7-18) Creatinine 1.0 MG/DL (0.55-1.30) Estimat Glomerular Filtration Rate > 60 mL/min (>60) Glucose Level 76 MG/DL (74-106) Calcium Level 7.8 MG/DL (8.5-10.1) L Phosphorus Level 2.0 MG/DL (2.5-4.9) L Magnesium Level 1.5 MG/DL (1.8-2.4) L Total Bilirubin 1.4 MG/DL (0.2-1.0) H Direct Bilirubin 0.5 MG/DL (0.0-0.3) H Aspartate Amino Transf (AST/SGOT) 32 U/L (15-37) Alanine Aminotransferase (ALT/SGPT) 24 U/L (12-78) Alkaline Phosphatase 107 U/L (46-116) Total Protein 5.3 G/DL (6.4-8.2) L Albumin 2.0 G/DL (3.4-5.0) L Globulin 3.3 g/dL Albumin/Globulin Ratio 0.6 (1.0-2.7) L Height (Feet): 5 Height (Inches): 5.00 Weight (Pounds): 145 Medications Current Medications Medications (Trade) Dose Ordered Sig/Raisa Route PRN Reason Start Time Stop Time Status Last Admin Dose Admin Acetaminophen (Tylenol) 650 mg Q4H PRN ORAL fever 06/30/17 06:15 07/30/17 06:14 07/02/17 21:01 Al Hydroxide/Mg Hydroxide (Mylanta II) 30 ml Q6H PRN ORAL dyspepsia 06/30/17 06:15 07/30/17 06:14 Amlodipine Besylate (Norvasc) 2.5 mg DAILY ORAL 06/30/17 09:00 07/30/17 08:59 Dextrose (Dextrose 50%) STAT PRN IV Hypoglycemia 06/30/17 06:15 07/30/17 06:14 Dextrose/Sodium Chloride 1,000 ml @ 75 mls/hr [id number] IV 06/30/17 07:00 07/30/17 06:59 07/02/17 08:47 Diphenhydramine HCl (Benadryl) 25 mg Q6H PRN ORAL Itching/Pruritis 06/30/17 06:15 07/30/17 06:14 Lactulose (Cephulac) 20 gm THREE TIMES A DAY ORAL 07/03/17 09:00 08/02/17 08:59 Levothyroxine Sodium (Synthroid) 25 mcg DAILY@0630 ORAL 06/30/17 07:00 07/30/17 06:59 07/02/17 05:35 Nitroglycerin (Ntg) 0.4 mg Q5M X 3 DOSES PRN SL Prn Chest Pain 06/30/17 06:15 07/30/17 06:14 Ondansetron HCl (Zofran) 4 mg Q6H PRN IVP Nausea & Vomiting 06/30/17 06:15 07/30/17 06:14 07/01/17 15:44 Pantoprazole (Protonix) 40 mg DAILY IVP 07/01/17 16:30 07/31/17 16:29 07/02/17 08:47 Polyethylene Glycol (Miralax) 17 gm HSPRN PRN ORAL Constipation 06/30/17 06:15 07/30/17 06:14 Quetiapine Fumarate (SEROquel) 25 mg DAILY ORAL 06/30/17 09:00 07/30/17 08:59 07/02/17 10:32 Rifaximin (Xifaxan) 550 mg EVERY 12 HOURS ORAL 06/30/17 21:00 07/07/17 20:59 07/02/17 20:59 Temazepam (Restoril) 15 mg HSPRN PRN ORAL Insomnia 06/30/17 06:15 07/07/17 06:14 07/02/17 20:59 Ursodiol (Actigall) 300 mg TWICE A DAY ORAL 06/30/17 09:00 07/30/17 08:59 07/02/17 17:14 Assessment/Plan Status: not improved, unchanged Assessment/Plan encephalopathy due to gmc -seroquel 25mg daily Matt Oconnor M.D. Jul 02, 2017 22:56
[2017-07-03] VITALS: BP 119/61
[2017-07-03] MEDS: D5 1/2NS 1,000 ML IV SCH (01:27)
[2017-07-03 04:00] VITALS: BP 101/55
[2017-07-03] MEDS: Levothyroxine 25mcg tab ORAL SCH (06:17)
[2017-07-03 06:22] LABS: HEMATOCRIT 47.3 % (37.0-47.0); HEMOGLOBIN 15.2 G/DL (12.0-16.0); MEAN CORPUSCULAR VOLUME 94 FL (80-99); PLATELET COUNT 88 K/UL (150-450); RED BLOOD COUNT 5.02 M/UL (4.20-5.40); RED CELL DISTRIBUTION WIDTH 16.1 % (11.6-14.8); WHITE BLOOD COUNT 4.1 K/UL (4.8-10.8)
[2017-07-03 07:20] LABS: ALANINE AMINOTRANSFERASE 28 U/L (12-78); ALBUMIN 2.1 G/DL (3.4-5.0); ALBUMIN/GLOBULIN RATIO 0.6 (1.0-2.7); ALKALINE PHOSPHATASE 121 U/L (46-116); ANION GAP 7 mmol/L (5-15); ASPARTATE AMINO TRANSFERASE 34 U/L (15-37); BILIRUBIN,TOTAL 1.6 MG/DL (0.2-1.0); BLOOD UREA NITROGEN 8 mg/dL (7-18); CALCIUM 7.9 MG/DL (8.5-10.1); CARBON DIOXIDE 24 MMOL/L (21-32); CHLORIDE 110 MMOL/L (98-107); PHOSPHORUS 2.2 MG/DL (2.5-4.9); POTASSIUM 3.7 MMOL/L (3.5-5.1); SODIUM 141 MMOL/L (136-145)
[2017-07-03 07:21] LABS: BILIRUBIN,DIRECT 0.4 MG/DL (0.0-0.3)
[2017-07-03 08:00] VITALS: BP 131/67
[2017-07-03] MEDS: Lactulose 20gm/30ml UDC ORAL SCH ×3 (08:35→17:13)
[2017-07-03] MEDS: Pantoprazole Inj IVP SCH (08:35)
[2017-07-03] MEDS: Ursodiol 300mg cap ORAL SCH ×2 (08:35→17:13)
[2017-07-03] MEDS ORDERED: D5 1/2NS 1000ml IV ONE (10:08)
--- NOTE | 2017-07-03 11:38 | GI Progress Note ---
Assessment/Plan Problems: (1) Lewy body dementia ICD Codes: G31.83 - Dementia with Lewy bodies; F02.80 - Dementia in other diseases classified elsewhere without behavioral disturbance SNOMED: 666494682 (2) Elevated liver function tests ICD Codes: R79.89 - Other specified abnormal findings of blood chemistry SNOMED: 209387338, 690570897 (3) At high risk for aspiration ICD Codes: Z91.89 - Other specified personal risk factors, not elsewhere classified SNOMED: 853611483 (4) Alzheimer's dementia ICD Codes: G30.9 - Alzheimer's disease, unspecified; F02.80 - Dementia in other diseases classified elsewhere without behavioral disturbance SNOMED: 03335329 (5) Acute hepatic encephalopathy ICD Codes: K72.00 - Acute and subacute hepatic failure without coma SNOMED: 02796160 Status: stable, progressing Status Narrative Discussed with Dr. Nur. Assessment/Plan Assessment - Biliary Cirrhosis - resolved N/V - Lewy Body Dementia - HTN - elevated NH3, hepatic encephalopathy Recommendations ordered abdominal U/S for elevated LFTs, ammonia ordered AMA, SMA, DEV to r/o primary biliary cirrhosis advance diet, tolerating check labs continue xifaxan low dose lactulose electrolyte correction fu labs, ammonia, hepatitis panel PT/OT eval fu as outpatient The patient was seen and examined at bedside and all new and available data was reviewed in the patients chart. I agree with the above findings, impression and plan. (Patient seen earlier today. Signature stamp does not reflect patient encounter time.). - Jaciel Nur MD Subjective Subjective urinary incontinence tolerating foods abdominal pain better Objective Last 24 Hour Vital Signs Date Time Temp Pulse Resp B/P (MAP) Pulse Ox O2 Delivery O2 Flow Rate FiO2 07/03/17 08:35 72 131/67 07/03/17 08:00 97.0 72 20 131/67 100 07/03/17 04:00 97.2 61 20 101/55 95 07/03/17 00:00 97.4 61 20 119/61 95 07/02/17 20:00 98.1 77 20 141/72 90 07/02/17 15:49 97.8 68 18 124/74 93 Room Air 07/02/17 15:49 Room Air 07/02/17 12:00 Room Air 07/02/17 12:00 97.7 67 18 126/66 93 Room Air Intake and Output 07/02/17 07/03/17 19:00 07:00 Intake Total 1230 ml 675 ml Balance 1230 ml 675 ml Intake Oral 480 ml IV Total 750 ml 675 ml # Voids 2 2 # Bowel Movements 1 Laboratory Tests Test 07/03/17 04:40 White Blood Count 4.1 K/UL (4.8-10.8) L Red Blood Count 5.02 M/UL (4.20-5.40) Hemoglobin 15.2 G/DL (12.0-16.0) Hematocrit 47.3 % (37.0-47.0) H Mean Corpuscular Volume 94 FL (80-99) Mean Corpuscular Hemoglobin 30.3 PG (27.0-31.0) Mean Corpuscular Hemoglobin Concent 32.2 G/DL (32.0-36.0) Red Cell Distribution Width 16.1 % (11.6-14.8) H Platelet Count 88 K/UL (150-450) L Mean Platelet Volume 9.8 FL (6.5-10.1) Neutrophils (%) (Auto) % (45.0-75.0) Lymphocytes (%) (Auto) % (20.0-45.0) Monocytes (%) (Auto) % (1.0-10.0) Eosinophils (%) (Auto) % (0.0-3.0) Basophils (%) (Auto) % (0.0-2.0) Differential Total Cells Counted 100 Neutrophils % (Manual) 55 % (45-75) Lymphocytes % (Manual) 35 % (20-45) Monocytes % (Manual) 8 % (1-10) Eosinophils % (Manual) 2 % (0-3) Basophils % (Manual) 0 % (0-2) Band Neutrophils 0 % (0-8) Platelet Estimate Decreased L Platelet Morphology Normal Anisocytosis 1+ Erythrocyte Sedimentation Rate 9 MM/HR (0-30) Sodium Level 141 MMOL/L (136-145) Potassium Level 3.7 MMOL/L (3.5-5.1) Chloride Level 110 MMOL/L (98-107) H Carbon Dioxide Level 24 MMOL/L (21-32) Anion Gap 7 mmol/L (5-15) Blood Urea Nitrogen 8 mg/dL (7-18) Creatinine 1.0 MG/DL (0.55-1.30) Estimat Glomerular Filtration Rate > 60 mL/min (>60) Glucose Level 88 MG/DL (74-106) Calcium Level 7.9 MG/DL (8.5-10.1) L Phosphorus Level 2.2 MG/DL (2.5-4.9) L Magnesium Level 1.7 MG/DL (1.8-2.4) L Total Bilirubin 1.6 MG/DL (0.2-1.0) H Direct Bilirubin 0.4 MG/DL (0.0-0.3) H Aspartate Amino Transf (AST/SGOT) 34 U/L (15-37) Alanine Aminotransferase (ALT/SGPT) 28 U/L (12-78) Alkaline Phosphatase 121 U/L (46-116) H Ammonia 100 umol/L (11-32) H C-Reactive Protein, Quantitative 6.0 mg/dL (0.00-0.90) H Total Protein 5.7 G/DL (6.4-8.2) L Albumin 2.1 G/DL (3.4-5.0) L Globulin 3.6 g/dL Albumin/Globulin Ratio 0.6 (1.0-2.7) L Height (Feet): 5 Height (Inches): 5.00 Weight (Pounds): 145 General Appearance: WD/WN, no apparent distress, alert, thin Cardiovascular: normal rate Respiratory/Chest: normal breath sounds, no respiratory distress Abdominal Exam: normal bowel sounds, non tender, soft Extremities: normal range of motion, non-tender Noemí Prince N.PMiguel A Jul 03, 2017 11:38 JAG NUR Jul 03, 2017 15:21
[2017-07-03 12:00] VITALS: BP 130/69
[2017-07-03] MEDS: Magnesium Oxide 400mg tab ORAL SCH ×2 (13:20→17:13)
--- NOTE | 2017-07-03 13:31 | Internal Med Progress Note ---
Subjective Date of Service: Jul 03, 2017 Physician Name Emil Tinajero Attending Physician Adarsh León MD Current Medications Medications (Trade) Dose Ordered Sig/Raisa Route PRN Reason Start Time Stop Time Status Last Admin Dose Admin Acetaminophen (Tylenol) 650 mg Q4H PRN ORAL fever 06/30/17 06:15 07/30/17 06:14 07/02/17 21:01 Al Hydroxide/Mg Hydroxide (Mylanta II) 30 ml Q6H PRN ORAL dyspepsia 06/30/17 06:15 07/30/17 06:14 Amlodipine Besylate (Norvasc) 2.5 mg DAILY ORAL 06/30/17 09:00 07/30/17 08:59 07/03/17 08:35 Dextrose (Dextrose 50%) STAT PRN IV Hypoglycemia 06/30/17 06:15 07/30/17 06:14 Diphenhydramine HCl (Benadryl) 25 mg Q6H PRN ORAL Itching/Pruritis 06/30/17 06:15 07/30/17 06:14 Lactulose (Cephulac) 20 gm THREE TIMES A DAY ORAL 07/03/17 09:00 08/02/17 08:59 07/03/17 13:20 Levothyroxine Sodium (Synthroid) 25 mcg DAILY@0630 ORAL 06/30/17 07:00 07/30/17 06:59 07/03/17 06:17 Magnesium Oxide (Mag-Ox 400mg) 400 mg THREE TIMES A DAY ORAL 07/03/17 13:00 08/02/17 12:59 07/03/17 13:20 Nitroglycerin (Ntg) 0.4 mg Q5M X 3 DOSES PRN SL Prn Chest Pain 06/30/17 06:15 07/30/17 06:14 Ondansetron HCl (Zofran) 4 mg Q6H PRN IVP Nausea & Vomiting 06/30/17 06:15 07/30/17 06:14 07/01/17 15:44 Pantoprazole (Protonix) 40 mg DAILY IVP 07/01/17 16:30 07/31/17 16:29 07/03/17 08:35 Polyethylene Glycol (Miralax) 17 gm HSPRN PRN ORAL Constipation 06/30/17 06:15 07/30/17 06:14 Quetiapine Fumarate (SEROquel) 25 mg DAILY ORAL 06/30/17 09:00 07/30/17 08:59 07/03/17 08:35 Rifaximin (Xifaxan) 550 mg EVERY 12 HOURS ORAL 06/30/17 21:00 07/07/17 20:59 07/03/17 08:36 Temazepam (Restoril) 15 mg HSPRN PRN ORAL Insomnia 06/30/17 06:15 07/07/17 06:14 07/02/17 20:59 Ursodiol (Actigall) 300 mg TWICE A DAY ORAL 06/30/17 09:00 07/30/17 08:59 07/03/17 08:35 Allergies: Coded Allergies: AZATHIOPRINE (Verified Allergy, Unknown, Hives, 06/30/17) CEPHALEXIN (Unverified Allergy, Unknown, 06/29/17) CIMETIDINE (Verified Allergy, Unknown, Hives, 06/30/17) ERYTHROMYCIN BASE (Unverified Allergy, Unknown, 06/30/17) Shahid Keaton Syndrome ROS Limited/Unobtainable: Yes Subjective 66 YO M admitted with chief complaint altered mental status. Now hepatic encephalopathy. Confused. Cover for Int Med-Sr [facility]. Objective Last Vital Signs Date Time Temp Pulse Resp B/P (MAP) Pulse Ox O2 Delivery O2 Flow Rate FiO2 07/03/17 12:00 97.5 77 20 130/69 100 07/02/17 15:49 Room Air Laboratory Tests Test 07/03/17 04:40 White Blood Count 4.1 K/UL (4.8-10.8) L Red Blood Count 5.02 M/UL (4.20-5.40) Hemoglobin 15.2 G/DL (12.0-16.0) Hematocrit 47.3 % (37.0-47.0) H Mean Corpuscular Volume 94 FL (80-99) Mean Corpuscular Hemoglobin 30.3 PG (27.0-31.0) Mean Corpuscular Hemoglobin Concent 32.2 G/DL (32.0-36.0) Red Cell Distribution Width 16.1 % (11.6-14.8) H Platelet Count 88 K/UL (150-450) L Mean Platelet Volume 9.8 FL (6.5-10.1) Neutrophils (%) (Auto) % (45.0-75.0) Lymphocytes (%) (Auto) % (20.0-45.0) Monocytes (%) (Auto) % (1.0-10.0) Eosinophils (%) (Auto) % (0.0-3.0) Basophils (%) (Auto) % (0.0-2.0) Differential Total Cells Counted 100 Neutrophils % (Manual) 55 % (45-75) Lymphocytes % (Manual) 35 % (20-45) Monocytes % (Manual) 8 % (1-10) Eosinophils % (Manual) 2 % (0-3) Basophils % (Manual) 0 % (0-2) Band Neutrophils 0 % (0-8) Platelet Estimate Decreased L Platelet Morphology Normal Anisocytosis 1+ Erythrocyte Sedimentation Rate 9 MM/HR (0-30) Sodium Level 141 MMOL/L (136-145) Potassium Level 3.7 MMOL/L (3.5-5.1) Chloride Level 110 MMOL/L (98-107) H Carbon Dioxide Level 24 MMOL/L (21-32) Anion Gap 7 mmol/L (5-15) Blood Urea Nitrogen 8 mg/dL (7-18) Creatinine 1.0 MG/DL (0.55-1.30) Estimat Glomerular Filtration Rate > 60 mL/min (>60) Glucose Level 88 MG/DL (74-106) Calcium Level 7.9 MG/DL (8.5-10.1) L Phosphorus Level 2.2 MG/DL (2.5-4.9) L Magnesium Level 1.7 MG/DL (1.8-2.4) L Total Bilirubin 1.6 MG/DL (0.2-1.0) H Direct Bilirubin 0.4 MG/DL (0.0-0.3) H Aspartate Amino Transf (AST/SGOT) 34 U/L (15-37) Alanine Aminotransferase (ALT/SGPT) 28 U/L (12-78) Alkaline Phosphatase 121 U/L (46-116) H Ammonia 100 umol/L (11-32) H C-Reactive Protein, Quantitative 6.0 mg/dL (0.00-0.90) H Total Protein 5.7 G/DL (6.4-8.2) L Albumin 2.1 G/DL (3.4-5.0) L Globulin 3.6 g/dL Albumin/Globulin Ratio 0.6 (1.0-2.7) L Intake and Output 07/02/17 07/03/17 19:00 07:00 Intake Total 1230 ml 675 ml Balance 1230 ml 675 ml Intake Oral 480 ml IV Total 750 ml 675 ml # Voids 2 2 # Bowel Movements 1 Objective General Appearance: WD/WN, no apparent distress, other EENT: PERRL/EOMI, normal ENT inspection Neck: non-tender, normal alignment, supple, normal inspection Cardiovascular: normal peripheral pulses, normal rate, regular rhythm, no gallop/murmur, no JVD Respiratory/Chest: chest wall non-tender, lungs clear, normal breath sounds, no respiratory distress, no accessory muscle use Abdomen: no organomegaly, no mass, decreased bowel sounds, distended, guarding Extremities: normal range of motion, non-tender 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 (5) Acute hepatic encephalopathy Assessment & Plan: Worsening ammonia level. See GI note. (6) Biliary cirrhosis (7) Hypothyroidism Assessment & Plan: continue synthroid Status: not improved EMIL TINAJERO Jul 03, 2017 13:31
--- NOTE | 2017-07-03 15:11 | Pulmonology Progress Note ---
Assessment/Plan Problems: (1) Biliary cirrhosis (2) Acute hepatic encephalopathy (3) At high risk for aspiration (4) Alzheimer's dementia Assessment/Plan improving npo check cultures psych evaluation GI f/u social service f/u competency ? will need placement Subjective ROS Limited/Unobtainable: No Constitutional: Reports: no symptoms HEENT: Repors: no symptoms Respiratory: Reports: no symptoms Allergies: Coded Allergies: AZATHIOPRINE (Verified Allergy, Unknown, Hives, 06/30/17) CEPHALEXIN (Unverified Allergy, Unknown, 06/29/17) CIMETIDINE (Verified Allergy, Unknown, Hives, 06/30/17) ERYTHROMYCIN BASE (Unverified Allergy, Unknown, 06/30/17) Shahid Keaton Syndrome Objective Last 24 Hour Vital Signs Date Time Temp Pulse Resp B/P (MAP) Pulse Ox O2 Delivery O2 Flow Rate FiO2 07/03/17 12:00 97.5 77 20 130/69 100 07/03/17 08:35 72 131/67 07/03/17 08:00 97.0 72 20 131/67 100 07/03/17 04:00 97.2 61 20 101/55 95 07/03/17 00:00 97.4 61 20 119/61 95 07/02/17 20:00 98.1 77 20 141/72 90 07/02/17 15:49 97.8 68 18 124/74 93 Room Air 07/02/17 15:49 Room Air Intake and Output 07/02/17 07/03/17 19:00 07:00 Intake Total 1230 ml 675 ml Balance 1230 ml 675 ml Intake Oral 480 ml IV Total 750 ml 675 ml # Voids 2 2 # Bowel Movements 1 General Appearance: WD/WN HEENT: atraumatic Respiratory/Chest: chest wall non-tender, lungs clear Breasts: no masses Cardiovascular: normal peripheral pulses Abdomen: normal bowel sounds, soft, non tender Genitourinary: normal external genitalia Extremities: no clubbing Skin: no lesions Laboratory Tests 07/03/17 04:40: White Blood Count 4.1L, Red Blood Count 5.02, Hemoglobin 15.2, Hematocrit 47.3H , Mean Corpuscular Volume 94, Mean Corpuscular Hemoglobin 30.3, Mean Corpuscular Hemoglobin Concent 32.2, Red Cell Distribution Width 16.1H, Platelet Count 88L, Mean Platelet Volume 9.8, Neutrophils (%) (Auto) , Lymphocytes (%) (Auto) , Monocytes (%) (Auto) , Eosinophils (%) (Auto) , Basophils (%) (Auto) , Differential Total Cells Counted 100, Neutrophils % ( Manual) 55, Lymphocytes % (Manual) 35, Monocytes % (Manual) 8, Eosinophils % ( Manual) 2, Basophils % (Manual) 0, Band Neutrophils 0, Platelet Estimate DecreasedL, Platelet Morphology Normal, Anisocytosis 1+, Erythrocyte Sedimentation Rate 9, Sodium Level 141, Potassium Level 3.7, Chloride Level 110H , Carbon Dioxide Level 24, Anion Gap 7, Blood Urea Nitrogen 8, Creatinine 1.0, Estimat Glomerular Filtration Rate > 60, Glucose Level 88, Calcium Level 7.9L, Phosphorus Level 2.2L, Magnesium Level 1.7L, Total Bilirubin 1.6H, Direct Bilirubin 0.4H, Aspartate Amino Transf (AST/SGOT) 34, Alanine Aminotransferase ( ALT/SGPT) 28, Alkaline Phosphatase 121H, Ammonia 100H, C-Reactive Protein, Quantitative 6.0H, Total Protein 5.7L, Albumin 2.1L, Globulin 3.6, Albumin/ Globulin Ratio 0.6L Current Medications Medications (Trade) Dose Ordered Sig/Raisa Route PRN Reason Start Time Stop Time Status Last Admin Dose Admin Acetaminophen (Tylenol) 650 mg Q4H PRN ORAL fever 06/30/17 06:15 07/30/17 06:14 07/02/17 21:01 Al Hydroxide/Mg Hydroxide (Mylanta II) 30 ml Q6H PRN ORAL dyspepsia 06/30/17 06:15 07/30/17 06:14 Amlodipine Besylate (Norvasc) 2.5 mg DAILY ORAL 06/30/17 09:00 07/30/17 08:59 07/03/17 08:35 Dextrose (Dextrose 50%) STAT PRN IV Hypoglycemia 06/30/17 06:15 07/30/17 06:14 Diphenhydramine HCl (Benadryl) 25 mg Q6H PRN ORAL Itching/Pruritis 06/30/17 06:15 07/30/17 06:14 Lactulose (Cephulac) 20 gm THREE TIMES A DAY ORAL 07/03/17 09:00 08/02/17 08:59 07/03/17 13:20 Levothyroxine Sodium (Synthroid) 25 mcg DAILY@0630 ORAL 06/30/17 07:00 07/30/17 06:59 07/03/17 06:17 Magnesium Oxide (Mag-Ox 400mg) 400 mg THREE TIMES A DAY ORAL 07/03/17 13:00 08/02/17 12:59 07/03/17 13:20 Nitroglycerin (Ntg) 0.4 mg Q5M X 3 DOSES PRN SL Prn Chest Pain 06/30/17 06:15 07/30/17 06:14 Ondansetron HCl (Zofran) 4 mg Q6H PRN IVP Nausea & Vomiting 06/30/17 06:15 07/30/17 06:14 07/01/17 15:44 Pantoprazole (Protonix) 40 mg DAILY IVP 07/01/17 16:30 07/31/17 16:29 07/03/17 08:35 Polyethylene Glycol (Miralax) 17 gm HSPRN PRN ORAL Constipation 06/30/17 06:15 07/30/17 06:14 Quetiapine Fumarate (SEROquel) 25 mg DAILY ORAL 06/30/17 09:00 07/30/17 08:59 07/03/17 08:35 Rifaximin (Xifaxan) 550 mg EVERY 12 HOURS ORAL 06/30/17 21:00 07/07/17 20:59 07/03/17 08:36 Temazepam (Restoril) 15 mg HSPRN PRN ORAL Insomnia 06/30/17 06:15 07/07/17 06:14 07/02/17 20:59 Ursodiol (Actigall) 300 mg TWICE A DAY ORAL 06/30/17 09:00 07/30/17 08:59 07/03/17 08:35 AJIT HOLM Jul 03, 2017 15:11
[2017-07-03 16:00] VITALS: BP 135/82
[2017-07-03 20:00] VITALS: BP 144/88
--- NOTE | 2017-07-03 20:45 | Progress Note ---
DATE: 07/03/2017 SUBJECTIVE: The patient is more lucid today, cooperative, less agitated, not coming out of bed. She is on one-to-one. MENTAL STATUS EXAMINATION: The patient is alert and oriented times self, place, and date. She is still forgetful. Mood is anxious. Affect is constricted, congruent with mood. Thought process is linear. Thought content, positive for paranoid ideation. Thought process is perseverates about seizure. Cognition is impaired, specifically memory. Insight and judgment is fair. ASSESSMENT: 1. Encephalopathy. 2. Anxiety. PLAN: 1. We will continue Seroquel. 2. We will continue to follow and readjust the medications. Matt Oconnor M.D. DR: BALJIT JOB#: [id number] CC:
[2017-07-04] VITALS: BP 135/76
[2017-07-04 04:00] VITALS: BP 108/62
[2017-07-04] MEDS: Levothyroxine 25mcg tab ORAL SCH (06:28)
[2017-07-04 08:15] VITALS: BP 138/89
[2017-07-04] MEDS: Lactulose 20gm/30ml UDC ORAL SCH ×3 (08:38→17:48)
[2017-07-04] MEDS: Ursodiol 300mg cap ORAL SCH ×2 (08:38→17:48)
[2017-07-04] MEDS: Pantoprazole Inj IVP SCH (08:39)
[2017-07-04] MEDS: Magnesium Oxide 400mg tab ORAL SCH ×3 (08:39→17:48)
--- NOTE | 2017-07-04 09:19 | Infectious Diseases Prog Note ---
Assessment/Plan Assessment/Plan ASSESSMENT: The patient is a 66-year-old female with, doubt sepsis at this time , ? UTI UCx :mixed growth and E coli ( asymptomatic ) History of recent urinary tract infection Transaminitis improved ALOC 2/ hepatic encephalopathy Abdominal ultrasound : no ascites History of primary biliary cirrhosis Dementia Seizure disorder Hypertension Hypothyroidism PLAN: monitor pt off of AB Rx 07/02 SP Azactam d# 3 Monitor CBC Monitor BMP. Monitor cultures(Bl) Subjective Constitutional: Denies: no symptoms, fever, chills, fatigue, anorexia, drenching sweats, other Allergies: Coded Allergies: AZATHIOPRINE (Verified Allergy, Unknown, Hives, 06/30/17) CEPHALEXIN (Unverified Allergy, Unknown, 06/29/17) CIMETIDINE (Verified Allergy, Unknown, Hives, 06/30/17) ERYTHROMYCIN BASE (Unverified Allergy, Unknown, 06/30/17) Shahid Keaton Syndrome Objective Vital Signs Last 24 Hour Vital Signs Date Time Temp Pulse Resp B/P (MAP) Pulse Ox O2 Delivery O2 Flow Rate FiO2 07/04/17 08:38 64 138/89 07/04/17 08:15 97.4 64 20 138/89 99 Room Air 07/04/17 04:00 98.1 68 20 108/62 92 07/04/17 00:00 97.9 71 19 135/76 98 07/03/17 20:00 98.4 55 19 144/88 97 07/03/17 16:00 97.5 83 18 135/82 95 07/03/17 12:00 97.5 77 20 130/69 100 Height (Feet): 5 Height (Inches): 5.00 Weight (Pounds): 145 HEENT: anicteric Respiratory/Chest: no respiratory distress Cardiovascular: no gallop/murmur Abdomen: no mass Current Medications Medications (Trade) Dose Ordered Sig/Raisa Route PRN Reason Start Time Stop Time Status Last Admin Dose Admin Acetaminophen (Tylenol) 650 mg Q4H PRN ORAL fever 06/30/17 06:15 07/30/17 06:14 07/03/17 22:25 Al Hydroxide/Mg Hydroxide (Mylanta II) 30 ml Q6H PRN ORAL dyspepsia 06/30/17 06:15 07/30/17 06:14 Amlodipine Besylate (Norvasc) 2.5 mg DAILY ORAL 06/30/17 09:00 07/30/17 08:59 07/04/17 08:38 Dextrose (Dextrose 50%) STAT PRN IV Hypoglycemia 06/30/17 06:15 07/30/17 06:14 Diphenhydramine HCl (Benadryl) 25 mg Q6H PRN ORAL Itching/Pruritis 06/30/17 06:15 07/30/17 06:14 Lactulose (Cephulac) 20 gm THREE TIMES A DAY ORAL 07/03/17 09:00 08/02/17 08:59 07/04/17 08:38 Levothyroxine Sodium (Synthroid) 25 mcg DAILY@0630 ORAL 06/30/17 07:00 07/30/17 06:59 07/04/17 06:28 Magnesium Oxide (Mag-Ox 400mg) 400 mg THREE TIMES A DAY ORAL 07/03/17 13:00 08/02/17 12:59 07/04/17 08:39 Nitroglycerin (Ntg) 0.4 mg Q5M X 3 DOSES PRN SL Prn Chest Pain 06/30/17 06:15 07/30/17 06:14 Ondansetron HCl (Zofran) 4 mg Q6H PRN IVP Nausea & Vomiting 06/30/17 06:15 07/30/17 06:14 07/04/17 00:31 Pantoprazole (Protonix) 40 mg DAILY IVP 07/01/17 16:30 07/31/17 16:29 07/04/17 08:39 Polyethylene Glycol (Miralax) 17 gm HSPRN PRN ORAL Constipation 06/30/17 06:15 07/30/17 06:14 Quetiapine Fumarate (SEROquel) 25 mg DAILY ORAL 06/30/17 09:00 07/30/17 08:59 07/04/17 08:38 Rifaximin (Xifaxan) 550 mg EVERY 12 HOURS ORAL 06/30/17 21:00 07/07/17 20:59 07/04/17 08:38 Temazepam (Restoril) 15 mg HSPRN PRN ORAL Insomnia 06/30/17 06:15 07/07/17 06:14 07/03/17 22:24 Ursodiol (Actigall) 300 mg TWICE A DAY ORAL 06/30/17 09:00 07/30/17 08:59 07/04/17 08:38 MATILDE PAZ M.D. Jul 04, 2017 09:19
--- NOTE | 2017-07-04 09:53 | Diagnostic Imaging Report ---
Indication:Abdominal pain Technique: Grayscale and duplex Doppler imaging of the abdomen performed. Comparison: None Findings: The liver is heterogeneous and shows a coarsened echotexture. There is nodularity liver surface, findings that are usually seen with cirrhosis and chronic disease. Please correlate clinically. There is no biliary dilatation. The CBD is 3.8 mm. There is no ascites. Spleen is prominent measuring about 13 cm. The aorta is normal in caliber. The pancreas is poorly seen. The kidneys are poorly seen but grossly unremarkable. The main portal vein is patent by Doppler examination. IVC is unremarkable. There is no hydronephrosis. The gallbladder is not seen. IMPRESSION: Some limitations demonstrated on this examination without generalized poor visualization of several structures. Suspicion of cirrhosis/chronic liver disease. Please correlate clinically. Borderline splenomegaly.
[2017-07-04 11:55] LABS: HEMATOCRIT 45.7 % (37.0-47.0); HEMOGLOBIN 14.6 G/DL (12.0-16.0); MEAN CORPUSCULAR VOLUME 95 FL (80-99); PLATELET COUNT 85 K/UL (150-450); RED BLOOD COUNT 4.82 M/UL (4.20-5.40); RED CELL DISTRIBUTION WIDTH 16.1 % (11.6-14.8); WHITE BLOOD COUNT 4.4 K/UL (4.8-10.8)
[2017-07-04 12:06] VITALS: BP 119/74
[2017-07-04 12:21] LABS: ALANINE AMINOTRANSFERASE 30 U/L (12-78); ALBUMIN 2.3 G/DL (3.4-5.0); ALBUMIN/GLOBULIN RATIO 0.6 (1.0-2.7); ALKALINE PHOSPHATASE 161 U/L (46-116); ANION GAP 8 mmol/L (5-15); ASPARTATE AMINO TRANSFERASE 35 U/L (15-37); BILIRUBIN,TOTAL 1.4 MG/DL (0.2-1.0); BLOOD UREA NITROGEN 6 mg/dL (7-18); CALCIUM 8.4 MG/DL (8.5-10.1); CARBON DIOXIDE 25 MMOL/L (21-32); CHLORIDE 107 MMOL/L (98-107); CREATININE 1.1 MG/DL (0.55-1.30); POTASSIUM 3.6 MMOL/L (3.5-5.1); SODIUM 140 MMOL/L (136-145)
[2017-07-04 12:23] LABS: BILIRUBIN,DIRECT 0.7 MG/DL (0.0-0.3)
--- NOTE | 2017-07-04 13:12 | Pulmonology Progress Note ---
Assessment/Plan Problems: (1) Biliary cirrhosis (2) Acute hepatic encephalopathy (3) At high risk for aspiration (4) Alzheimer's dementia Assessment/Plan improving check cultures psych evaluation GI f/u social service f/u competency ? will need placement d/w Dr Sierra and daughter at the bedside ( daughter acted clueless about pts long-term underlying condition including dementia and biliary cirrhosis) Subjective ROS Limited/Unobtainable: No Constitutional: Reports: no symptoms HEENT: Repors: no symptoms Respiratory: Reports: no symptoms Allergies: Coded Allergies: AZATHIOPRINE (Verified Allergy, Unknown, Hives, 06/30/17) CEPHALEXIN (Unverified Allergy, Unknown, 06/29/17) CIMETIDINE (Verified Allergy, Unknown, Hives, 06/30/17) ERYTHROMYCIN BASE (Unverified Allergy, Unknown, 06/30/17) Shahid Keaton Syndrome Objective Last 24 Hour Vital Signs Date Time Temp Pulse Resp B/P (MAP) Pulse Ox O2 Delivery O2 Flow Rate FiO2 07/04/17 12:06 97.5 79 18 119/74 97 Room Air 07/04/17 08:38 64 138/89 07/04/17 08:15 97.4 64 20 138/89 99 Room Air 07/04/17 04:00 98.1 68 20 108/62 92 07/04/17 00:00 97.9 71 19 135/76 98 07/03/17 20:00 98.4 55 19 144/88 97 07/03/17 16:00 97.5 83 18 135/82 95 Intake and Output 07/03/17 07/04/17 19:00 07:00 Intake Total 315 ml Balance 315 ml Intake Oral 240 ml IV Total 75 ml # Voids 1 3 # Bowel Movements 1 2 Objective Lines, tubes and drains: peripheral HEENT: normocephalic, atraumatic Neck: non-tender, supple Respiratory/Chest: chest wall non-tender, normal breath sounds, no respiratory distress Breasts: no masses Cardiovascular/Chest: normal peripheral pulses Abdomen: normal bowel sounds Genitourinary/Rectal: normal genital exam Extremities: normal range of motion, non-tender Skin Exam: cyanotic Neurologic: erp pm II-XII grossly normal Laboratory Tests 07/04/17 11:30: White Blood Count 4.4L, Red Blood Count 4.82, Hemoglobin 14.6, Hematocrit 45.7, Mean Corpuscular Volume 95, Mean Corpuscular Hemoglobin 30.3, Mean Corpuscular Hemoglobin Concent 31.9L, Red Cell Distribution Width 16.1H, Platelet Count 85L , Mean Platelet Volume 9.6, Neutrophils (%) (Auto) , Lymphocytes (%) (Auto) , Monocytes (%) (Auto) , Eosinophils (%) (Auto) , Basophils (%) (Auto) , Differential Total Cells Counted 100, Neutrophils % (Manual) 51, Lymphocytes % ( Manual) 29, Monocytes % (Manual) 15H, Eosinophils % (Manual) 4H, Basophils % ( Manual) 0, Band Neutrophils 1, Platelet Estimate DecreasedL, Platelet Morphology Normal, Anisocytosis 1+, Sodium Level 140, Potassium Level 3.6, Chloride Level 107, Carbon Dioxide Level 25, Anion Gap 8, Blood Urea Nitrogen 6L , Creatinine 1.1, Estimat Glomerular Filtration Rate > 60, Glucose Level 88, Calcium Level 8.4L, Total Bilirubin 1.4H, Direct Bilirubin 0.7H, Aspartate Amino Transf (AST/SGOT) 35, Alanine Aminotransferase (ALT/SGPT) 30, Alkaline Phosphatase 161H, Ammonia 50H, Total Protein 6.4, Albumin 2.3L, Globulin 4.1, Albumin/Globulin Ratio 0.6L, Alpha Fetoprotein [Pending], Anti-Nuclear Antibody Screen [Pending], SmRNP Antibodies [Pending], Anti-Mitochondrial Antibody [ Pending], Hepatitis A IgM Antibody [Pending], Hepatitis B Surface Antigen [ Pending], Hepatitis B Core IgM Antibody [Pending], Hepatitis C Antibody [Pending ] Current Medications Medications (Trade) Dose Ordered Sig/Raisa Route PRN Reason Start Time Stop Time Status Last Admin Dose Admin Acetaminophen (Tylenol) 650 mg Q4H PRN ORAL fever 06/30/17 06:15 07/30/17 06:14 07/03/17 22:25 Al Hydroxide/Mg Hydroxide (Mylanta II) 30 ml Q6H PRN ORAL dyspepsia 06/30/17 06:15 07/30/17 06:14 Amlodipine Besylate (Norvasc) 2.5 mg DAILY ORAL 06/30/17 09:00 07/30/17 08:59 07/04/17 08:38 Dextrose (Dextrose 50%) STAT PRN IV Hypoglycemia 06/30/17 06:15 07/30/17 06:14 Diphenhydramine HCl (Benadryl) 25 mg Q6H PRN ORAL Itching/Pruritis 06/30/17 06:15 07/30/17 06:14 Lactulose (Cephulac) 20 gm THREE TIMES A DAY ORAL 07/03/17 09:00 08/02/17 08:59 07/04/17 08:38 Levetiracetam (Keppra) 250 mg Q12HR ORAL 07/04/17 12:15 08/03/17 12:14 Levothyroxine Sodium (Synthroid) 25 mcg DAILY@0630 ORAL 06/30/17 07:00 07/30/17 06:59 07/04/17 06:28 Magnesium Oxide (Mag-Ox 400mg) 400 mg THREE TIMES A DAY ORAL 07/03/17 13:00 08/02/17 12:59 07/04/17 08:39 Nitroglycerin (Ntg) 0.4 mg Q5M X 3 DOSES PRN SL Prn Chest Pain 06/30/17 06:15 07/30/17 06:14 Ondansetron HCl (Zofran) 4 mg Q6H PRN IVP Nausea & Vomiting 06/30/17 06:15 07/30/17 06:14 07/04/17 00:31 Pantoprazole (Protonix) 40 mg DAILY IVP 07/01/17 16:30 07/31/17 16:29 07/04/17 08:39 Polyethylene Glycol (Miralax) 17 gm HSPRN PRN ORAL Constipation 06/30/17 06:15 07/30/17 06:14 Quetiapine Fumarate (SEROquel) 25 mg DAILY ORAL 06/30/17 09:00 07/30/17 08:59 07/04/17 08:38 Rifaximin (Xifaxan) 550 mg EVERY 12 HOURS ORAL 06/30/17 21:00 07/07/17 20:59 07/04/17 08:38 Temazepam (Restoril) 15 mg HSPRN PRN ORAL Insomnia 06/30/17 06:15 07/07/17 06:14 07/03/17 22:24 Ursodiol (Actigall) 300 mg TWICE A DAY ORAL 06/30/17 09:00 07/30/17 08:59 07/04/17 08:38 AJIT HOLM Jul 04, 2017 13:12
--- NOTE | 2017-07-04 13:13 | Diagnostic Imaging Report ---
APPROVED REPORT CPT Code: 20528 Present Symptoms Lower Extremity Edema: Left Comments: R/O DVT BILATERAL: Imaging reveals a patent deep venous system bilaterally. There is no evidence of thrombus within the femoral, popliteal or tibial segments. The greater saphenous veins are also within normal limits. Doppler indicates normal spontaneous flow within these segments.
--- NOTE | 2017-07-04 15:04 | GI Progress Note ---
Assessment/Plan Problems: (1) Lewy body dementia ICD Codes: G31.83 - Dementia with Lewy bodies; F02.80 - Dementia in other diseases classified elsewhere without behavioral disturbance SNOMED: 404187418 (2) Elevated liver function tests ICD Codes: R79.89 - Other specified abnormal findings of blood chemistry SNOMED: 589024511, 168102140 (3) At high risk for aspiration ICD Codes: Z91.89 - Other specified personal risk factors, not elsewhere classified SNOMED: 004445249 (4) Alzheimer's dementia ICD Codes: G30.9 - Alzheimer's disease, unspecified; F02.80 - Dementia in other diseases classified elsewhere without behavioral disturbance SNOMED: 27033934 (5) Acute hepatic encephalopathy ICD Codes: K72.00 - Acute and subacute hepatic failure without coma SNOMED: 29701674 Status: stable Status Narrative Discussed with Dr. Nur. Assessment/Plan Assessment - Biliary Cirrhosis - resolved N/V - Lewy Body Dementia - HTN - elevated NH3, hepatic encephalopathy abdominal U/S reviewed >> Suspicion of cirrhosis/chronic liver disease. elevated ammonia >> downtrending per patient daugther, the patient has primary GI/Liver disease @ [facility] who diagnosed her PBC. Recommendations okay for DC per GI standpoint, patient to follow follow up with primary GI AMA, SMA, DEV to r/o primary biliary cirrhosis advance diet, tolerating continue xifaxan + low dose lactulose electrolyte correction fu labs, ammonia, hepatitis panel PT/OT eval The patient was seen and examined at bedside and all new and available data was reviewed in the patients chart. I agree with the above findings, impression and plan. (Patient seen earlier today. Signature stamp does not reflect patient encounter time.). - Jaciel Nur MD Subjective Subjective urinary incontinence tolerating foods abdominal pain better Objective Last 24 Hour Vital Signs Date Time Temp Pulse Resp B/P (MAP) Pulse Ox O2 Delivery O2 Flow Rate FiO2 07/04/17 12:06 97.5 79 18 119/74 97 Room Air 07/04/17 08:38 64 138/89 07/04/17 08:15 97.4 64 20 138/89 99 Room Air 07/04/17 04:00 98.1 68 20 108/62 92 07/04/17 00:00 97.9 71 19 135/76 98 07/03/17 20:00 98.4 55 19 144/88 97 07/03/17 16:00 97.5 83 18 135/82 95 Intake and Output 07/03/17 07/04/17 19:00 07:00 Intake Total 315 ml Balance 315 ml Intake Oral 240 ml IV Total 75 ml # Voids 1 3 # Bowel Movements 1 2 Laboratory Tests Test 07/04/17 11:30 White Blood Count 4.4 K/UL (4.8-10.8) L Red Blood Count 4.82 M/UL (4.20-5.40) Hemoglobin 14.6 G/DL (12.0-16.0) Hematocrit 45.7 % (37.0-47.0) Mean Corpuscular Volume 95 FL (80-99) Mean Corpuscular Hemoglobin 30.3 PG (27.0-31.0) Mean Corpuscular Hemoglobin Concent 31.9 G/DL (32.0-36.0) L Red Cell Distribution Width 16.1 % (11.6-14.8) H Platelet Count 85 K/UL (150-450) L Mean Platelet Volume 9.6 FL (6.5-10.1) Neutrophils (%) (Auto) % (45.0-75.0) Lymphocytes (%) (Auto) % (20.0-45.0) Monocytes (%) (Auto) % (1.0-10.0) Eosinophils (%) (Auto) % (0.0-3.0) Basophils (%) (Auto) % (0.0-2.0) Differential Total Cells Counted 100 Neutrophils % (Manual) 51 % (45-75) Lymphocytes % (Manual) 29 % (20-45) Monocytes % (Manual) 15 % (1-10) H Eosinophils % (Manual) 4 % (0-3) H Basophils % (Manual) 0 % (0-2) Band Neutrophils 1 % (0-8) Platelet Estimate Decreased L Platelet Morphology Normal Anisocytosis 1+ Sodium Level 140 MMOL/L (136-145) Potassium Level 3.6 MMOL/L (3.5-5.1) Chloride Level 107 MMOL/L (98-107) Carbon Dioxide Level 25 MMOL/L (21-32) Anion Gap 8 mmol/L (5-15) Blood Urea Nitrogen 6 mg/dL (7-18) L Creatinine 1.1 MG/DL (0.55-1.30) Estimat Glomerular Filtration Rate > 60 mL/min (>60) Glucose Level 88 MG/DL (74-106) Calcium Level 8.4 MG/DL (8.5-10.1) L Total Bilirubin 1.4 MG/DL (0.2-1.0) H Direct Bilirubin 0.7 MG/DL (0.0-0.3) H Aspartate Amino Transf (AST/SGOT) 35 U/L (15-37) Alanine Aminotransferase (ALT/SGPT) 30 U/L (12-78) Alkaline Phosphatase 161 U/L (46-116) H Ammonia 50 umol/L (11-32) H Total Protein 6.4 G/DL (6.4-8.2) Albumin 2.3 G/DL (3.4-5.0) L Globulin 4.1 g/dL Albumin/Globulin Ratio 0.6 (1.0-2.7) L Alpha Fetoprotein Pending Anti-Nuclear Antibody Screen Pending SmRNP Antibodies Pending Anti-Mitochondrial Antibody Pending Hepatitis A IgM Antibody Pending Hepatitis B Surface Antigen Pending Hepatitis B Core IgM Antibody Pending Hepatitis C Antibody Pending Height (Feet): 5 Height (Inches): 5.00 Weight (Pounds): 145 General Appearance: WD/WN, no apparent distress, alert, thin Cardiovascular: normal rate Respiratory/Chest: normal breath sounds, no respiratory distress Abdominal Exam: normal bowel sounds, non tender, soft Extremities: normal range of motion, non-tender Noemí Prince N.P. Jul 04, 2017 15:04 JAG NUR Jul 05, 2017 10:54
--- NOTE | 2017-07-04 15:18 | Diagnostic Imaging Report ---
Indication: Headache Technique: Contiguous 5 mm thick transaxial imaging of the head obtained in a Siemens Sensation [address] scanner. Soft tissue and bone windows generated. Automatic Exposure Control was utilized. Total Dose length Product (DLP): 1245.[address] Dose Index Volume (CTDIvol): 70.38 mGy Comparison: none Findings: There is mild prominence of the ventricles, basal cisterns, and cerebral sulci consistent with atrophy. Mild, nonspecific, white matter hypoattenuation is noted throughout the brain consistent with chronic small vessel disease. There is no midline shift, edema, acute hemorrhage, mass effect, or abnormal extra-axial fluid collections. Bones and extra osseous soft tissues are unremarkable. Impression: No acute intracranial bleed, mass effect or edema. Mild atrophy of the brain. Nonspecific white matter hypoattenuation probably due to chronic small vessel disease. The CT scanner at [facility] is accredited by the [employer] and the scans are performed using dose optimization techniques as appropriate to a performed exam including Automatic Exposure control.
[2017-07-04 16:00] VITALS: BP 119/63
--- NOTE | 2017-07-04 16:13 | Internal Med Progress Note ---
Subjective Date of Service: Jul 04, 2017 Physician Name TinajeroEmil Attending Physician Adarsh León MD Current Medications Medications (Trade) Dose Ordered Sig/Raisa Route PRN Reason Start Time Stop Time Status Last Admin Dose Admin Acetaminophen (Tylenol) 650 mg Q4H PRN ORAL fever 06/30/17 06:15 07/30/17 06:14 07/03/17 22:25 Al Hydroxide/Mg Hydroxide (Mylanta II) 30 ml Q6H PRN ORAL dyspepsia 06/30/17 06:15 07/30/17 06:14 Amlodipine Besylate (Norvasc) 2.5 mg DAILY ORAL 06/30/17 09:00 07/30/17 08:59 07/04/17 08:38 Dextrose (Dextrose 50%) STAT PRN IV Hypoglycemia 06/30/17 06:15 07/30/17 06:14 Diphenhydramine HCl (Benadryl) 25 mg Q6H PRN ORAL Itching/Pruritis 06/30/17 06:15 07/30/17 06:14 Lactulose (Cephulac) 20 gm THREE TIMES A DAY ORAL 07/03/17 09:00 08/02/17 08:59 07/04/17 13:39 Levetiracetam (Keppra) 250 mg Q12HR ORAL 07/04/17 12:15 08/03/17 12:14 07/04/17 13:38 Levothyroxine Sodium (Synthroid) 25 mcg DAILY@0630 ORAL 06/30/17 07:00 07/30/17 06:59 07/04/17 06:28 Magnesium Oxide (Mag-Ox 400mg) 400 mg THREE TIMES A DAY ORAL 07/03/17 13:00 08/02/17 12:59 07/04/17 13:38 Nitroglycerin (Ntg) 0.4 mg Q5M X 3 DOSES PRN SL Prn Chest Pain 06/30/17 06:15 07/30/17 06:14 Ondansetron HCl (Zofran) 4 mg Q6H PRN IVP Nausea & Vomiting 06/30/17 06:15 07/30/17 06:14 07/04/17 00:31 Pantoprazole (Protonix) 40 mg DAILY IVP 07/01/17 16:30 3/12/18 16:29 07/04/17 08:39 Polyethylene Glycol (Miralax) 17 gm HSPRN PRN ORAL Constipation 06/30/17 06:15 07/30/17 06:14 Quetiapine Fumarate (SEROquel) 25 mg DAILY ORAL 06/30/17 09:00 07/30/17 08:59 07/04/17 08:38 Rifaximin (Xifaxan) 550 mg EVERY 12 HOURS ORAL 06/30/17 21:00 07/07/17 20:59 07/04/17 08:38 Temazepam (Restoril) 15 mg HSPRN PRN ORAL Insomnia 06/30/17 06:15 07/07/17 06:14 07/03/17 22:24 Ursodiol (Actigall) 300 mg TWICE A DAY ORAL 06/30/17 09:00 07/30/17 08:59 07/04/17 08:38 Allergies: Coded Allergies: AZATHIOPRINE (Verified Allergy, Unknown, Hives, 06/30/17) CEPHALEXIN (Unverified Allergy, Unknown, 06/29/17) CIMETIDINE (Verified Allergy, Unknown, Hives, 06/30/17) ERYTHROMYCIN BASE (Unverified Allergy, Unknown, 06/30/17) Shahid Keaton Syndrome ROS Limited/Unobtainable: Yes Subjective 66 YO M admitted with chief complaint altered mental status. Now hepatic encephalopathy. Confused. Cover for [facility]. Await transfer to Rehab on [facility]-see interstate planner note. Objective Last Vital Signs Date Time Temp Pulse Resp B/P (MAP) Pulse Ox O2 Delivery O2 Flow Rate FiO2 07/04/17 12:06 97.5 79 18 119/74 97 Room Air Laboratory Tests Test 07/04/17 11:30 White Blood Count 4.4 K/UL (4.8-10.8) L Red Blood Count 4.82 M/UL (4.20-5.40) Hemoglobin 14.6 G/DL (12.0-16.0) Hematocrit 45.7 % (37.0-47.0) Mean Corpuscular Volume 95 FL (80-99) Mean Corpuscular Hemoglobin 30.3 PG (27.0-31.0) Mean Corpuscular Hemoglobin Concent 31.9 G/DL (32.0-36.0) L Red Cell Distribution Width 16.1 % (11.6-14.8) H Platelet Count 85 K/UL (150-450) L Mean Platelet Volume 9.6 FL (6.5-10.1) Neutrophils (%) (Auto) % (45.0-75.0) Lymphocytes (%) (Auto) % (20.0-45.0) Monocytes (%) (Auto) % (1.0-10.0) Eosinophils (%) (Auto) % (0.0-3.0) Basophils (%) (Auto) % (0.0-2.0) Differential Total Cells Counted 100 Neutrophils % (Manual) 51 % (45-75) Lymphocytes % (Manual) 29 % (20-45) Monocytes % (Manual) 15 % (1-10) H Eosinophils % (Manual) 4 % (0-3) H Basophils % (Manual) 0 % (0-2) Band Neutrophils 1 % (0-8) Platelet Estimate Decreased L Platelet Morphology Normal Anisocytosis 1+ Sodium Level 140 MMOL/L (136-145) Potassium Level 3.6 MMOL/L (3.5-5.1) Chloride Level 107 MMOL/L (98-107) Carbon Dioxide Level 25 MMOL/L (21-32) Anion Gap 8 mmol/L (5-15) Blood Urea Nitrogen 6 mg/dL (7-18) L Creatinine 1.1 MG/DL (0.55-1.30) Estimat Glomerular Filtration Rate > 60 mL/min (>60) Glucose Level 88 MG/DL (74-106) Calcium Level 8.4 MG/DL (8.5-10.1) L Total Bilirubin 1.4 MG/DL (0.2-1.0) H Direct Bilirubin 0.7 MG/DL (0.0-0.3) H Aspartate Amino Transf (AST/SGOT) 35 U/L (15-37) Alanine Aminotransferase (ALT/SGPT) 30 U/L (12-78) Alkaline Phosphatase 161 U/L (46-116) H Ammonia 50 umol/L (11-32) H Total Protein 6.4 G/DL (6.4-8.2) Albumin 2.3 G/DL (3.4-5.0) L Globulin 4.1 g/dL Albumin/Globulin Ratio 0.6 (1.0-2.7) L Alpha Fetoprotein Pending Anti-Nuclear Antibody Screen Pending SmRNP Antibodies Pending Anti-Mitochondrial Antibody Pending Hepatitis A IgM Antibody Pending Hepatitis B Surface Antigen Pending Hepatitis B Core IgM Antibody Pending Hepatitis C Antibody Pending Intake and Output 07/03/17 07/04/17 19:00 07:00 Intake Total 315 ml Balance 315 ml Intake Oral 240 ml IV Total 75 ml # Voids 1 3 # Bowel Movements 1 2 Objective General Appearance: WD/WN, no apparent distress, other EENT: PERRL/EOMI, normal ENT inspection Neck: non-tender, normal alignment, supple, normal inspection Cardiovascular: normal peripheral pulses, normal rate, regular rhythm, no gallop/murmur, no JVD Respiratory/Chest: chest wall non-tender, lungs clear, normal breath sounds, no respiratory distress, no accessory muscle use Abdomen: no organomegaly, no mass, decreased bowel sounds, distended, guarding Extremities: normal range of motion, non-tender 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 (5) Acute hepatic encephalopathy Assessment & Plan: Worsening ammonia level. See GI note. (6) Biliary cirrhosis (7) Hypothyroidism Assessment & Plan: continue synthroid (8) UTI (urinary tract infection) Assessment & Plan: E. Coli and mixed orgs. See ID note. S/P aztreonam Status: progressing Assessment/Plan Discharge planning: [facility] TINAJEROEMIL Jul 04, 2017 16:13
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
[2017-07-04 20:00] VITALS: BP 120/70
[2017-07-05] VITALS: BP 134/74
[2017-07-05 04:00] VITALS: BP 130/76
[2017-07-05] MEDS: Levothyroxine 25mcg tab ORAL SCH (05:50)
[2017-07-05 07:51] LABS: HEMATOCRIT 40.9 % (37.0-47.0); HEMOGLOBIN 13.3 G/DL (12.0-16.0); MEAN CORPUSCULAR VOLUME 94 FL (80-99); RED BLOOD COUNT 4.36 M/UL (4.20-5.40); WHITE BLOOD COUNT 3.9 K/UL (4.8-10.8)
[2017-07-05 07:52] LABS: PLATELET COUNT 77 K/UL (150-450); RED CELL DISTRIBUTION WIDTH 15.7 % (11.6-14.8)
[2017-07-05 08:00] LABS: ALANINE AMINOTRANSFERASE 30 U/L (12-78); ALBUMIN/GLOBULIN RATIO 0.5 (1.0-2.7); ALKALINE PHOSPHATASE 157 U/L (46-116); AMYLASE 93 U/L (10-110); ANION GAP 7 mmol/L (5-15); ASPARTATE AMINO TRANSFERASE 32 U/L (15-37); BILIRUBIN,TOTAL 1.1 MG/DL (0.2-1.0); BLOOD UREA NITROGEN 6 mg/dL (7-18); CARBON DIOXIDE 25 MMOL/L (21-32); CHLORIDE 110 MMOL/L (98-107); CREATININE 0.9 MG/DL (0.55-1.30); PHOSPHORUS 1.9 MG/DL (2.5-4.9); POTASSIUM 3.8 MMOL/L (3.5-5.1); SODIUM 142 MMOL/L (136-145)
[2017-07-05 08:01] LABS: BILIRUBIN,DIRECT 0.5 MG/DL (0.0-0.3)
[2017-07-05 08:20] VITALS: BP 100/67
[2017-07-05] MEDS: Ursodiol 300mg cap ORAL SCH ×2 (10:04→18:42)
[2017-07-05] MEDS: Magnesium Oxide 400mg tab ORAL SCH ×3 (10:04→18:42)
[2017-07-05] MEDS: Pantoprazole Inj IVP SCH (10:04)
[2017-07-05] MEDS: Lactulose 20gm/30ml UDC ORAL SCH ×3 (10:04→18:00)
--- NOTE | 2017-07-05 10:34 | Infectious Diseases Prog Note ---
Assessment/Plan Assessment/Plan ASSESSMENT: The patient is a 66-year-old female with, doubt sepsis at this time , ? UTI UCx :mixed growth and E coli ( asymptomatic ) History of recent urinary tract infection Transaminitis improved ALOC / hepatic encephalopathy Abdominal ultrasound : no ascites History of primary biliary cirrhosis Dementia Seizure disorder Hypertension Hypothyroidism PLAN: monitor pt off of AB Rx 07/02 SP Azactam d# 3 Monitor CBC Monitor BMP Hep panel : P Subjective Constitutional: Denies: no symptoms, fever, chills, fatigue, anorexia, drenching sweats, other Allergies: Coded Allergies: AZATHIOPRINE (Verified Allergy, Unknown, Hives, 06/30/17) CEPHALEXIN (Unverified Allergy, Unknown, 06/29/17) CIMETIDINE (Verified Allergy, Unknown, Hives, 06/30/17) ERYTHROMYCIN BASE (Unverified Allergy, Unknown, 06/30/17) Shahid Keaton Syndrome Objective Vital Signs Last 24 Hour Vital Signs Date Time Temp Pulse Resp B/P (MAP) Pulse Ox O2 Delivery O2 Flow Rate FiO2 07/05/17 10:05 89 117/81 07/05/17 08:20 97.3 76 20 100/67 97 07/05/17 04:00 97.9 69 16 130/76 95 Room Air 07/05/17 00:00 97.7 76 18 134/74 94 Room Air 07/04/17 20:00 97.9 70 18 120/70 94 Room Air 07/04/17 16:00 97.9 80 20 119/63 92 07/04/17 12:06 97.5 79 18 119/74 97 Room Air Height (Feet): 5 Height (Inches): 5.00 Weight (Pounds): 145 HEENT: anicteric Respiratory/Chest: no respiratory distress Cardiovascular: regularly irregular Abdomen: non distended Laboratory Tests Test 07/04/17 11:30 07/05/17 05:40 White Blood Count 4.4 K/UL (4.8-10.8) L 3.9 K/UL (4.8-10.8) L Red Blood Count 4.82 M/UL (4.20-5.40) 4.36 M/UL (4.20-5.40) Hemoglobin 14.6 G/DL (12.0-16.0) 13.3 G/DL (12.0-16.0) Hematocrit 45.7 % (37.0-47.0) 40.9 % (37.0-47.0) Mean Corpuscular Volume 95 FL (80-99) 94 FL (80-99) Mean Corpuscular Hemoglobin 30.3 PG (27.0-31.0) 30.4 PG (27.0-31.0) Mean Corpuscular Hemoglobin Concent 31.9 G/DL (32.0-36.0) L 32.5 G/DL (32.0-36.0) Red Cell Distribution Width 16.1 % (11.6-14.8) H 15.7 % (11.6-14.8) H Platelet Count 85 K/UL (150-450) L 77 K/UL (150-450) L Mean Platelet Volume 9.6 FL (6.5-10.1) 13.1 FL (6.5-10.1) H Neutrophils (%) (Auto) % (45.0-75.0) % (45.0-75.0) Lymphocytes (%) (Auto) % (20.0-45.0) % (20.0-45.0) Monocytes (%) (Auto) % (1.0-10.0) % (1.0-10.0) Eosinophils (%) (Auto) % (0.0-3.0) % (0.0-3.0) Basophils (%) (Auto) % (0.0-2.0) % (0.0-2.0) Differential Total Cells Counted 100 Neutrophils % (Manual) 51 % (45-75) Pending Lymphocytes % (Manual) 29 % (20-45) Pending Monocytes % (Manual) 15 % (1-10) H Eosinophils % (Manual) 4 % (0-3) H Basophils % (Manual) 0 % (0-2) Band Neutrophils 1 % (0-8) Platelet Estimate Decreased L Pending Platelet Morphology Normal Pending Anisocytosis 1+ Sodium Level 140 MMOL/L (136-145) 142 MMOL/L (136-145) Potassium Level 3.6 MMOL/L (3.5-5.1) 3.8 MMOL/L (3.5-5.1) Chloride Level 107 MMOL/L (98-107) 110 MMOL/L (98-107) H Carbon Dioxide Level 25 MMOL/L (21-32) 25 MMOL/L (21-32) Anion Gap 8 mmol/L (5-15) 7 mmol/L (5-15) Blood Urea Nitrogen 6 mg/dL (7-18) L 6 mg/dL (7-18) L Creatinine 1.1 MG/DL (0.55-1.30) 0.9 MG/DL (0.55-1.30) Estimat Glomerular Filtration Rate > 60 mL/min (>60) > 60 mL/min (>60) Glucose Level 88 MG/DL (74-106) 84 MG/DL (74-106) Calcium Level 8.4 MG/DL (8.5-10.1) L 8.0 MG/DL (8.5-10.1) L Total Bilirubin 1.4 MG/DL (0.2-1.0) H 1.1 MG/DL (0.2-1.0) H Direct Bilirubin 0.7 MG/DL (0.0-0.3) H 0.5 MG/DL (0.0-0.3) H Aspartate Amino Transf (AST/SGOT) 35 U/L (15-37) 32 U/L (15-37) Alanine Aminotransferase (ALT/SGPT) 30 U/L (12-78) 30 U/L (12-78) Alkaline Phosphatase 161 U/L (46-116) H 157 U/L (46-116) H Ammonia 50 umol/L (11-32) H 79 umol/L (11-32) H Total Protein 6.4 G/DL (6.4-8.2) 5.7 G/DL (6.4-8.2) L Albumin 2.3 G/DL (3.4-5.0) L 2.0 G/DL (3.4-5.0) L Globulin 4.1 g/dL 3.7 g/dL Albumin/Globulin Ratio 0.6 (1.0-2.7) L 0.5 (1.0-2.7) L Alpha Fetoprotein Pending Anti-Nuclear Antibody Screen Pending SmRNP Antibodies Pending Anti-Mitochondrial Antibody Pending Hepatitis A IgM Antibody Pending Hepatitis B Surface Antigen Pending Hepatitis B Core IgM Antibody Pending Hepatitis C Antibody Pending Erythrocyte Sedimentation Rate 8 MM/HR (0-30) Phosphorus Level 1.9 MG/DL (2.5-4.9) L Magnesium Level 1.9 MG/DL (1.5-2.4) C-Reactive Protein, Quantitative 5.9 mg/dL (0.00-0.90) H Amylase Level 93 U/L (10-110) Lipase 184 U/L (73-393) Current Medications Medications (Trade) Dose Ordered Sig/Raisa Route PRN Reason Start Time Stop Time Status Last Admin Dose Admin Acetaminophen (Tylenol) 650 mg Q4H PRN ORAL fever 06/30/17 06:15 07/30/17 06:14 07/03/17 22:25 Al Hydroxide/Mg Hydroxide (Mylanta II) 30 ml Q6H PRN ORAL dyspepsia 06/30/17 06:15 07/30/17 06:14 Amlodipine Besylate (Norvasc) 2.5 mg DAILY ORAL 06/30/17 09:00 07/30/17 08:59 07/05/17 10:05 Dextrose (Dextrose 50%) STAT PRN IV Hypoglycemia 06/30/17 06:15 07/30/17 06:14 Diphenhydramine HCl (Benadryl) 25 mg Q6H PRN ORAL Itching/Pruritis 06/30/17 06:15 07/30/17 06:14 Lactulose (Cephulac) 20 gm THREE TIMES A DAY ORAL 07/03/17 09:00 08/02/17 08:59 07/05/17 10:04 Levetiracetam (Keppra) 250 mg Q12HR ORAL 07/04/17 12:15 08/03/17 12:14 07/05/17 10:04 Levothyroxine Sodium (Synthroid) 25 mcg DAILY@0630 ORAL 06/30/17 07:00 07/30/17 06:59 07/05/17 05:50 Magnesium Oxide (Mag-Ox 400mg) 400 mg THREE TIMES A DAY ORAL 07/03/17 13:00 08/02/17 12:59 07/05/17 10:04 Nitroglycerin (Ntg) 0.4 mg Q5M X 3 DOSES PRN SL Prn Chest Pain 06/30/17 06:15 07/30/17 06:14 Ondansetron HCl (Zofran) 4 mg Q6H PRN IVP Nausea & Vomiting 06/30/17 06:15 07/30/17 06:14 07/04/17 23:32 Pantoprazole (Protonix) 40 mg DAILY IVP 07/01/17 16:30 07/31/17 16:29 07/05/17 10:04 Polyethylene Glycol (Miralax) 17 gm HSPRN PRN ORAL Constipation 06/30/17 06:15 07/30/17 06:14 Quetiapine Fumarate (SEROquel) 25 mg DAILY ORAL 06/30/17 09:00 07/30/17 08:59 07/05/17 10:04 Rifaximin (Xifaxan) 550 mg EVERY 12 HOURS ORAL 06/30/17 21:00 07/07/17 20:59 07/05/17 10:04 Temazepam (Restoril) 15 mg HSPRN PRN ORAL Insomnia 06/30/17 06:15 07/07/17 06:14 07/04/17 20:19 Ursodiol (Actigall) 300 mg TWICE A DAY ORAL 06/30/17 09:00 07/30/17 08:59 07/05/17 10:04 MATILDE PAZ M.D. Jul 05, 2017 10:34
[2017-07-05 11:28] VITALS: BP 111/65
--- NOTE | 2017-07-05 12:11 | Internal Med Progress Note ---
Subjective Date of Service: Jul 05, 2017 Physician Name TinajeroEmil Attending Physician Adarsh León MD Current Medications Medications (Trade) Dose Ordered Sig/Raisa Route PRN Reason Start Time Stop Time Status Last Admin Dose Admin Acetaminophen (Tylenol) 650 mg Q4H PRN ORAL fever 06/30/17 06:15 07/30/17 06:14 07/03/17 22:25 Al Hydroxide/Mg Hydroxide (Mylanta II) 30 ml Q6H PRN ORAL dyspepsia 06/30/17 06:15 07/30/17 06:14 Amlodipine Besylate (Norvasc) 2.5 mg DAILY ORAL 06/30/17 09:00 07/30/17 08:59 07/05/17 10:05 Dextrose (Dextrose 50%) STAT PRN IV Hypoglycemia 06/30/17 06:15 07/30/17 06:14 Diphenhydramine HCl (Benadryl) 25 mg Q6H PRN ORAL Itching/Pruritis 06/30/17 06:15 07/30/17 06:14 Lactulose (Cephulac) 20 gm THREE TIMES A DAY ORAL 07/03/17 09:00 08/02/17 08:59 07/05/17 10:04 Levetiracetam (Keppra) 250 mg Q12HR ORAL 07/04/17 12:15 08/03/17 12:14 07/05/17 10:04 Levothyroxine Sodium (Synthroid) 25 mcg DAILY@0630 ORAL 06/30/17 07:00 07/30/17 06:59 07/05/17 05:50 Magnesium Oxide (Mag-Ox 400mg) 400 mg THREE TIMES A DAY ORAL 07/03/17 13:00 08/02/17 12:59 07/05/17 10:04 Nitroglycerin (Ntg) 0.4 mg Q5M X 3 DOSES PRN SL Prn Chest Pain 06/30/17 06:15 07/30/17 06:14 Ondansetron HCl (Zofran) 4 mg Q6H PRN IVP Nausea & Vomiting 06/30/17 06:15 07/30/17 06:14 07/04/17 23:32 Pantoprazole (Protonix) 40 mg DAILY IVP 07/01/17 16:30 3/12/18 16:29 07/05/17 10:04 Polyethylene Glycol (Miralax) 17 gm HSPRN PRN ORAL Constipation 06/30/17 06:15 07/30/17 06:14 Quetiapine Fumarate (SEROquel) 25 mg DAILY ORAL 06/30/17 09:00 07/30/17 08:59 07/05/17 10:04 Rifaximin (Xifaxan) 550 mg EVERY 12 HOURS ORAL 06/30/17 21:00 07/07/17 20:59 07/05/17 10:04 Temazepam (Restoril) 15 mg HSPRN PRN ORAL Insomnia 06/30/17 06:15 07/07/17 06:14 07/04/17 20:19 Ursodiol (Actigall) 300 mg TWICE A DAY ORAL 06/30/17 09:00 07/30/17 08:59 07/05/17 10:04 Allergies: Coded Allergies: AZATHIOPRINE (Verified Allergy, Unknown, Hives, 06/30/17) CEPHALEXIN (Unverified Allergy, Unknown, 06/29/17) CIMETIDINE (Verified Allergy, Unknown, Hives, 06/30/17) ERYTHROMYCIN BASE (Unverified Allergy, Unknown, 06/30/17) Shahid Keaton Syndrome ROS Limited/Unobtainable: No Constitutional: Reports: no symptoms HEENT: Reports: no symptoms Cardiovascular: Reports: no symptoms Respiratory: Reports: no symptoms Gastrointestinal/Abdominal: Reports: no symptoms Genitourinary: Reports: no symptoms Neurologic/Psychiatric: Reports: no symptoms Subjective 66 YO M admitted with chief complaint altered mental status. Now hepatic encephalopathy. Confused. Cover for [facility]. Await transfer to Rehab on [facility]-see data recovery planner note. Objective Last Vital Signs Date Time Temp Pulse Resp B/P (MAP) Pulse Ox O2 Delivery O2 Flow Rate FiO2 07/05/17 11:28 98.2 89 20 111/65 95 07/05/17 04:00 Room Air Laboratory Tests Test 07/05/17 05:40 White Blood Count 3.9 K/UL (4.8-10.8) L Red Blood Count 4.36 M/UL (4.20-5.40) Hemoglobin 13.3 G/DL (12.0-16.0) Hematocrit 40.9 % (37.0-47.0) Mean Corpuscular Volume 94 FL (80-99) Mean Corpuscular Hemoglobin 30.4 PG (27.0-31.0) Mean Corpuscular Hemoglobin Concent 32.5 G/DL (32.0-36.0) Red Cell Distribution Width 15.7 % (11.6-14.8) H Platelet Count 77 K/UL (150-450) L Mean Platelet Volume 13.1 FL (6.5-10.1) H Neutrophils (%) (Auto) % (45.0-75.0) Lymphocytes (%) (Auto) % (20.0-45.0) Monocytes (%) (Auto) % (1.0-10.0) Eosinophils (%) (Auto) % (0.0-3.0) Basophils (%) (Auto) % (0.0-2.0) Differential Total Cells Counted 100 Neutrophils % (Manual) 48 % (45-75) Lymphocytes % (Manual) 36 % (20-45) Monocytes % (Manual) 10 % (1-10) Eosinophils % (Manual) 6 % (0-3) H Basophils % (Manual) 0 % (0-2) Band Neutrophils 0 % (0-8) Platelet Estimate Decreased L Platelet Morphology Normal Anisocytosis 1+ Erythrocyte Sedimentation Rate 8 MM/HR (0-30) Sodium Level 142 MMOL/L (136-145) Potassium Level 3.8 MMOL/L (3.5-5.1) Chloride Level 110 MMOL/L (98-107) H Carbon Dioxide Level 25 MMOL/L (21-32) Anion Gap 7 mmol/L (5-15) Blood Urea Nitrogen 6 mg/dL (7-18) L Creatinine 0.9 MG/DL (0.55-1.30) Estimat Glomerular Filtration Rate > 60 mL/min (>60) Glucose Level 84 MG/DL (74-106) Calcium Level 8.0 MG/DL (8.5-10.1) L Phosphorus Level 1.9 MG/DL (2.5-4.9) L Magnesium Level 1.9 MG/DL (1.5-2.4) Total Bilirubin 1.1 MG/DL (0.2-1.0) H Direct Bilirubin 0.5 MG/DL (0.0-0.3) H Aspartate Amino Transf (AST/SGOT) 32 U/L (15-37) Alanine Aminotransferase (ALT/SGPT) 30 U/L (12-78) Alkaline Phosphatase 157 U/L (46-116) H Ammonia 79 umol/L (11-32) H C-Reactive Protein, Quantitative 5.9 mg/dL (0.00-0.90) H Total Protein 5.7 G/DL (6.4-8.2) L Albumin 2.0 G/DL (3.4-5.0) L Globulin 3.7 g/dL Albumin/Globulin Ratio 0.5 (1.0-2.7) L Amylase Level 93 U/L (10-110) Lipase 184 U/L (73-393) Intake and Output 07/04/17 07/05/17 19:00 07:00 Intake Total 240 ml 240 ml Balance 240 ml 240 ml Intake Oral 240 ml 240 ml # Voids 1 2 Objective General Appearance: WD/WN, no apparent distress, other EENT: PERRL/EOMI, normal ENT inspection Neck: non-tender, normal alignment, supple, normal inspection Cardiovascular: normal peripheral pulses, normal rate, regular rhythm, no gallop/murmur, no JVD Respiratory/Chest: chest wall non-tender, lungs clear, normal breath sounds, no respiratory distress, no accessory muscle use Abdomen: no organomegaly, no mass, decreased bowel sounds, distended, guarding Extremities: normal range of motion, non-tender 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 (5) Acute hepatic encephalopathy Assessment & Plan: Worsening ammonia level. See GI note. (6) Biliary cirrhosis (7) Hypothyroidism Assessment & Plan: continue synthroid (8) UTI (urinary tract infection) Assessment & Plan: E. Coli and mixed orgs. See ID note. S/P aztreonam Status: progressing Assessment/Plan Discharge planning: Rehab [facility] TINAJEROEMIL Tovar Jul 05, 2017 12:11
--- NOTE | 2017-07-05 12:16 | GI Progress Note ---
Assessment/Plan Problems: (1) Lewy body dementia ICD Codes: G31.83 - Dementia with Lewy bodies; F02.80 - Dementia in other diseases classified elsewhere without behavioral disturbance SNOMED: 346305046 (2) Elevated liver function tests ICD Codes: R79.89 - Other specified abnormal findings of blood chemistry SNOMED: 930652068, 489846686 (3) At high risk for aspiration ICD Codes: Z91.89 - Other specified personal risk factors, not elsewhere classified SNOMED: 023601083 (4) Alzheimer's dementia ICD Codes: G30.9 - Alzheimer's disease, unspecified; F02.80 - Dementia in other diseases classified elsewhere without behavioral disturbance SNOMED: 77725380 (5) Acute hepatic encephalopathy ICD Codes: K72.00 - Acute and subacute hepatic failure without coma SNOMED: 97477134 Status: stable Status Narrative Discussed with Dr. Nur. Assessment/Plan Assessment - Biliary Cirrhosis - resolved N/V - Lewy Body Dementia - HTN - elevated NH3, hepatic encephalopathy abdominal U/S reviewed >> Suspicion of cirrhosis/chronic liver disease. elevated ammonia >> downtrending per patient daugther, the patient has primary GI/Liver disease @ [facility] who diagnosed her PBC. Recommendations okay for DC per GI standpoint, patient to follow follow up with primary GI AMA, SMA, DEV to r/o primary biliary cirrhosis advance diet, tolerating continue xifaxan + low dose lactulose electrolyte correction fu labs, ammonia, hepatitis panel PT/OT eval The patient was seen and examined at bedside and all new and available data was reviewed in the patients chart. I agree with the above findings, impression and plan. (Patient seen earlier today. Signature stamp does not reflect patient encounter time.). - Jaciel Nur MD Subjective Subjective urinary incontinence tolerating foods abdominal pain better back pain Objective Last 24 Hour Vital Signs Date Time Temp Pulse Resp B/P (MAP) Pulse Ox O2 Delivery O2 Flow Rate FiO2 07/05/17 11:28 98.2 89 20 111/65 95 07/05/17 10:05 89 117/81 07/05/17 08:20 97.3 76 20 100/67 97 07/05/17 04:00 97.9 69 16 130/76 95 Room Air 07/05/17 00:00 97.7 76 18 134/74 94 Room Air 07/04/17 20:00 97.9 70 18 120/70 94 Room Air 07/04/17 16:00 97.9 80 20 119/63 92 Intake and Output 07/04/17 07/05/17 19:00 07:00 Intake Total 240 ml 240 ml Balance 240 ml 240 ml Intake Oral 240 ml 240 ml # Voids 1 2 Laboratory Tests Test 07/05/17 05:40 White Blood Count 3.9 K/UL (4.8-10.8) L Red Blood Count 4.36 M/UL (4.20-5.40) Hemoglobin 13.3 G/DL (12.0-16.0) Hematocrit 40.9 % (37.0-47.0) Mean Corpuscular Volume 94 FL (80-99) Mean Corpuscular Hemoglobin 30.4 PG (27.0-31.0) Mean Corpuscular Hemoglobin Concent 32.5 G/DL (32.0-36.0) Red Cell Distribution Width 15.7 % (11.6-14.8) H Platelet Count 77 K/UL (150-450) L Mean Platelet Volume 13.1 FL (6.5-10.1) H Neutrophils (%) (Auto) % (45.0-75.0) Lymphocytes (%) (Auto) % (20.0-45.0) Monocytes (%) (Auto) % (1.0-10.0) Eosinophils (%) (Auto) % (0.0-3.0) Basophils (%) (Auto) % (0.0-2.0) Differential Total Cells Counted 100 Neutrophils % (Manual) 48 % (45-75) Lymphocytes % (Manual) 36 % (20-45) Monocytes % (Manual) 10 % (1-10) Eosinophils % (Manual) 6 % (0-3) H Basophils % (Manual) 0 % (0-2) Band Neutrophils 0 % (0-8) Platelet Estimate Decreased L Platelet Morphology Normal Anisocytosis 1+ Erythrocyte Sedimentation Rate 8 MM/HR (0-30) Sodium Level 142 MMOL/L (136-145) Potassium Level 3.8 MMOL/L (3.5-5.1) Chloride Level 110 MMOL/L (98-107) H Carbon Dioxide Level 25 MMOL/L (21-32) Anion Gap 7 mmol/L (5-15) Blood Urea Nitrogen 6 mg/dL (7-18) L Creatinine 0.9 MG/DL (0.55-1.30) Estimat Glomerular Filtration Rate > 60 mL/min (>60) Glucose Level 84 MG/DL (74-106) Calcium Level 8.0 MG/DL (8.5-10.1) L Phosphorus Level 1.9 MG/DL (2.5-4.9) L Magnesium Level 1.9 MG/DL (1.5-2.4) Total Bilirubin 1.1 MG/DL (0.2-1.0) H Direct Bilirubin 0.5 MG/DL (0.0-0.3) H Aspartate Amino Transf (AST/SGOT) 32 U/L (15-37) Alanine Aminotransferase (ALT/SGPT) 30 U/L (12-78) Alkaline Phosphatase 157 U/L (46-116) H Ammonia 79 umol/L (11-32) H C-Reactive Protein, Quantitative 5.9 mg/dL (0.00-0.90) H Total Protein 5.7 G/DL (6.4-8.2) L Albumin 2.0 G/DL (3.4-5.0) L Globulin 3.7 g/dL Albumin/Globulin Ratio 0.5 (1.0-2.7) L Amylase Level 93 U/L (10-110) Lipase 184 U/L (73-393) Height (Feet): 5 Height (Inches): 5.00 Weight (Pounds): 145 General Appearance: WD/WN, no apparent distress, alert Cardiovascular: normal rate Respiratory/Chest: normal breath sounds, no respiratory distress Abdominal Exam: normal bowel sounds, non tender, soft Extremities: non-tender Noemí Prince NAsia Jul 05, 2017 12:16 JAG NUR Jul 10, 2017 09:06
--- NOTE | 2017-07-05 12:26 | Neurology Progress Note ---
Interim History Interim History ROS Limited/Unobtainable: Yes Complaints: weakness , low back pain Events: stays in bed Objective Physical Exam Last Vital Signs Date Time Temp Pulse Resp B/P (MAP) Pulse Ox O2 Delivery O2 Flow Rate FiO2 07/05/17 11:28 98.2 89 20 111/65 95 07/05/17 04:00 Room Air Laboratory Tests Test 07/05/17 05:40 White Blood Count 3.9 K/UL (4.8-10.8) L Red Blood Count 4.36 M/UL (4.20-5.40) Hemoglobin 13.3 G/DL (12.0-16.0) Hematocrit 40.9 % (37.0-47.0) Mean Corpuscular Volume 94 FL (80-99) Mean Corpuscular Hemoglobin 30.4 PG (27.0-31.0) Mean Corpuscular Hemoglobin Concent 32.5 G/DL (32.0-36.0) Red Cell Distribution Width 15.7 % (11.6-14.8) H Platelet Count 77 K/UL (150-450) L Mean Platelet Volume 13.1 FL (6.5-10.1) H Neutrophils (%) (Auto) % (45.0-75.0) Lymphocytes (%) (Auto) % (20.0-45.0) Monocytes (%) (Auto) % (1.0-10.0) Eosinophils (%) (Auto) % (0.0-3.0) Basophils (%) (Auto) % (0.0-2.0) Differential Total Cells Counted 100 Neutrophils % (Manual) 48 % (45-75) Lymphocytes % (Manual) 36 % (20-45) Monocytes % (Manual) 10 % (1-10) Eosinophils % (Manual) 6 % (0-3) H Basophils % (Manual) 0 % (0-2) Band Neutrophils 0 % (0-8) Platelet Estimate Decreased L Platelet Morphology Normal Anisocytosis 1+ Erythrocyte Sedimentation Rate 8 MM/HR (0-30) Sodium Level 142 MMOL/L (136-145) Potassium Level 3.8 MMOL/L (3.5-5.1) Chloride Level 110 MMOL/L (98-107) H Carbon Dioxide Level 25 MMOL/L (21-32) Anion Gap 7 mmol/L (5-15) Blood Urea Nitrogen 6 mg/dL (7-18) L Creatinine 0.9 MG/DL (0.55-1.30) Estimat Glomerular Filtration Rate > 60 mL/min (>60) Glucose Level 84 MG/DL (74-106) Calcium Level 8.0 MG/DL (8.5-10.1) L Phosphorus Level 1.9 MG/DL (2.5-4.9) L Magnesium Level 1.9 MG/DL (1.5-2.4) Total Bilirubin 1.1 MG/DL (0.2-1.0) H Direct Bilirubin 0.5 MG/DL (0.0-0.3) H Aspartate Amino Transf (AST/SGOT) 32 U/L (15-37) Alanine Aminotransferase (ALT/SGPT) 30 U/L (12-78) Alkaline Phosphatase 157 U/L (46-116) H Ammonia 79 umol/L (11-32) H C-Reactive Protein, Quantitative 5.9 mg/dL (0.00-0.90) H Total Protein 5.7 G/DL (6.4-8.2) L Albumin 2.0 G/DL (3.4-5.0) L Globulin 3.7 g/dL Albumin/Globulin Ratio 0.5 (1.0-2.7) L Amylase Level 93 U/L (10-110) Lipase 184 U/L (73-393) General: no acute distress, other - cachectic Head: normocophalic, atraumatic Neck: no rigidity Neurologic Exam Mental Status: awake, alert, other - confused poor recent memory Speech: normal speech, no dysarthia Language: normal language, no aphasia Cranial Nerve II: fundus normal, visual sung, no papilledema Cranial Nerves III, IV, : PERRLA, EOMI, pupils Cranial Nerve V: normal facial sensations, temporales function normal, masseters function normal, pterygoids function normal Cranial Nerve VII: no facial asymmetry, normal facial expressions Cranial Nerve VIII: normal hearing, no nystagmus Cranial Nerve IX: normal palate elevation, gag response Cranial Nerve X: no voice hoarseness Cranial Nerve XI: SCM symmetric, trapezii function normal Cranial Nerve XII: tongue midline, no tongue atrophy/fasciculations Motor System: no involuntary movement, no muscle wasting, other - rigidity Sensory: normal pinprick Coordination: other Deep Tendon Reflexes: 0 bicep (L), 0 bicep (R), 0 tricep (L), 0 tricep (R), 0 brachioradialis (L), 0 brachioradialis (R), 0 knee (L), 0 knee (R), 0 ankle (L) , 0 ankle (R) Reflexes: mute plantar (L), mute plantar (R) Impression/Recommendations Problems: (1) Lewy body dementia (2) Biliary cirrhosis (3) Hypothyroidism Status: stable Recommendations x ray LS spine cont present rx rehab MACIE SHAW Jul 05, 2017 12:26
[2017-07-05] MEDS ORDERED: Norco 5mg/325mg tab ORAL PRN (12:30)
--- NOTE | 2017-07-05 14:35 | Pulmonology Progress Note ---
Assessment/Plan Problems: (1) Biliary cirrhosis (2) Acute hepatic encephalopathy (3) At high risk for aspiration (4) Alzheimer's dementia Assessment/Plan improving check cultures psych evaluation GI f/u social service f/u d/w Dr Sierra and daughter at the bedside ( daughter acted clueless about pts long-term underlying condition including dementia and biliary cirrhosis) xr of spine Subjective ROS Limited/Unobtainable: No Allergies: Coded Allergies: AZATHIOPRINE (Verified Allergy, Unknown, Hives, 06/30/17) CEPHALEXIN (Unverified Allergy, Unknown, 06/29/17) CIMETIDINE (Verified Allergy, Unknown, Hives, 06/30/17) ERYTHROMYCIN BASE (Unverified Allergy, Unknown, 06/30/17) Shahid Keaton Syndrome Objective Last 24 Hour Vital Signs Date Time Temp Pulse Resp B/P (MAP) Pulse Ox O2 Delivery O2 Flow Rate FiO2 07/05/17 11:28 98.2 89 20 111/65 95 07/05/17 10:05 89 117/81 07/05/17 08:20 97.3 76 20 100/67 97 07/05/17 04:00 97.9 69 16 130/76 95 Room Air 07/05/17 00:00 97.7 76 18 134/74 94 Room Air 07/04/17 20:00 97.9 70 18 120/70 94 Room Air 07/04/17 16:00 97.9 80 20 119/63 92 Intake and Output 07/04/17 07/05/17 19:00 07:00 Intake Total 240 ml 240 ml Balance 240 ml 240 ml Intake Oral 240 ml 240 ml # Voids 1 2 Objective Lines, tubes and drains: peripheral HEENT: normocephalic, atraumatic Neck: non-tender, supple Respiratory/Chest: chest wall non-tender, normal breath sounds, no respiratory distress Breasts: no masses Cardiovascular/Chest: normal peripheral pulses Abdomen: normal bowel sounds Genitourinary/Rectal: normal genital exam Extremities: normal range of motion, non-tender Skin Exam: cyanotic 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 Laboratory Tests 07/05/17 05:40: White Blood Count 3.9L, Red Blood Count 4.36, Hemoglobin 13.3, Hematocrit 40.9, Mean Corpuscular Volume 94, Mean Corpuscular Hemoglobin 30.4, Mean Corpuscular Hemoglobin Concent 32.5, Red Cell Distribution Width 15.7H, Platelet Count 77L, Mean Platelet Volume 13.1H, Neutrophils (%) (Auto) , Lymphocytes (%) (Auto) , Monocytes (%) (Auto) , Eosinophils (%) (Auto) , Basophils (%) (Auto) , Differential Total Cells Counted 100, Neutrophils % (Manual) 48, Lymphocytes % ( Manual) 36, Monocytes % (Manual) 10, Eosinophils % (Manual) 6H, Basophils % ( Manual) 0, Band Neutrophils 0, Platelet Estimate DecreasedL, Platelet Morphology Normal, Anisocytosis 1+, Erythrocyte Sedimentation Rate 8, Sodium Level 142, Potassium Level 3.8, Chloride Level 110H, Carbon Dioxide Level 25, Anion Gap 7, Blood Urea Nitrogen 6L, Creatinine 0.9, Estimat Glomerular Filtration Rate > 60, Glucose Level 84, Calcium Level 8.0L, Phosphorus Level 1.9L, Magnesium Level 1.9, Total Bilirubin 1.1H, Direct Bilirubin 0.5H, Aspartate Amino Transf (AST/SGOT) 32, Alanine Aminotransferase (ALT/SGPT) 30, Alkaline Phosphatase 157H, Ammonia 79H, C-Reactive Protein, Quantitative 5.9H, Total Protein 5.7L, Albumin 2.0L, Globulin 3.7, Albumin/Globulin Ratio 0.5L, Amylase Level 93, Lipase 184 Current Medications Medications (Trade) Dose Ordered Sig/Raisa Route PRN Reason Start Time Stop Time Status Last Admin Dose Admin Acetaminophen (Tylenol) 650 mg Q4H PRN ORAL fever 06/30/17 06:15 07/30/17 06:14 07/03/17 22:25 Acetaminophen/ Hydrocodone Bitart ([place] 5/325) 1 tab Q4H PRN ORAL Moderate Pain (Pain Scale 4-6) 07/05/17 12:30 07/12/17 12:29 Al Hydroxide/Mg Hydroxide (Mylanta II) 30 ml Q6H PRN ORAL dyspepsia 06/30/17 06:15 07/30/17 06:14 Amlodipine Besylate (Norvasc) 2.5 mg DAILY ORAL 06/30/17 09:00 07/30/17 08:59 07/05/17 10:05 Dextrose (Dextrose 50%) STAT PRN IV Hypoglycemia 06/30/17 06:15 07/30/17 06:14 Diphenhydramine HCl (Benadryl) 25 mg Q6H PRN ORAL Itching/Pruritis 06/30/17 06:15 07/30/17 06:14 Lactulose (Cephulac) 20 gm THREE TIMES A DAY ORAL 07/03/17 09:00 08/02/17 08:59 07/05/17 13:34 Levetiracetam (Keppra) 250 mg Q12HR ORAL 07/04/17 12:15 08/03/17 12:14 07/05/17 10:04 Levothyroxine Sodium (Synthroid) 25 mcg DAILY@0630 ORAL 06/30/17 07:00 07/30/17 06:59 07/05/17 05:50 Magnesium Oxide (Mag-Ox 400mg) 400 mg THREE TIMES A DAY ORAL 07/03/17 13:00 08/02/17 12:59 07/05/17 13:34 Nitroglycerin (Ntg) 0.4 mg Q5M X 3 DOSES PRN SL Prn Chest Pain 06/30/17 06:15 07/30/17 06:14 Ondansetron HCl (Zofran) 4 mg Q6H PRN IVP Nausea & Vomiting 06/30/17 06:15 07/30/17 06:14 07/04/17 23:32 Pantoprazole (Protonix) 40 mg DAILY IVP 07/01/17 16:30 07/31/17 16:29 07/05/17 10:04 Polyethylene Glycol (Miralax) 17 gm HSPRN PRN ORAL Constipation 06/30/17 06:15 07/30/17 06:14 Quetiapine Fumarate (SEROquel) 25 mg DAILY ORAL 06/30/17 09:00 07/30/17 08:59 07/05/17 10:04 Rifaximin (Xifaxan) 550 mg EVERY 12 HOURS ORAL 06/30/17 21:00 07/07/17 20:59 07/05/17 10:04 Temazepam (Restoril) 15 mg HSPRN PRN ORAL Insomnia 06/30/17 06:15 07/07/17 06:14 07/04/17 20:19 Ursodiol (Actigall) 300 mg TWICE A DAY ORAL 06/30/17 09:00 07/30/17 08:59 07/05/17 10:04 AJIT HOLM Jul 05, 2017 14:35
--- NOTE | 2017-07-05 16:31 | Diagnostic Imaging Report ---
Indication: Back pain Comparison: None Findings: 3 views of the lumbar spine were obtained. No obvious acute fracture identified. Marginal endplate spurs and hypertrophic facets demonstrated at multiple levels. The bones appear osteopenic. Aorta is mildly calcified. There is a moderate amount of stool in the colon. 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
[2017-07-05 16:45] VITALS: BP 113/70
[2017-07-05] MEDS ORDERED: NORCO 5-325 TA1 EACH ORAL (16:52)
[2017-07-05] MEDS ORDERED: KEPPRA500 M4 ORAL (16:53)
[2017-07-05] MEDS ORDERED: MAG-OXIDE400 M1 PO (16:53)
[2017-07-05] MEDS ORDERED: LACTULOSE20 GM/301 ORAL (16:54)
[2017-07-05] MEDS ORDERED: PROTONIX40 MG ORAL (16:55)
[2017-07-05] MEDS ORDERED: XIFAXAN550 MG ORAL (16:55)
[2017-07-05] MEDS ORDERED: QUETIAPINE FUMA25 MG ORAL (16:56)
[2017-07-05] MEDS ORDERED: SYNTHROID25 MCG ORAL (16:57)
[2017-07-05] MEDS ORDERED: URSODIOL300 MG ORAL (16:57)
[2017-07-05] MEDS ORDERED: MIRALAX17 G2 ORAL (16:57)
[2017-07-05] MEDS ORDERED: TYLENOL650 MG/20. ORAL (16:57)
[2017-07-05] MEDS ORDERED: ZOFRAN ODT4 MG ORAL (16:58)
[2017-07-05] MEDS ORDERED: RESTORIL15 MG ORAL (16:58)
[2017-07-05] MEDS ORDERED: MYLANTA30 M1 PO (16:59)
[2017-07-05 19:58] VITALS: BP 136/69
[2017-07-05] MEDS ORDERED: Pneumococcal Vaccine 25mcg/0.5ml IM ONE (20:00)
--- NOTE | 2017-07-05 20:52 | General Progress Note ---
Assessment/Plan Status: stable, progressing Assessment/Plan encephalopathy due to gmc -seroquel 25mg daily Subjective Date patient seen: Jul 05, 2017 Neurologic/Psychiatric: Reports: anxiety, depressed, emotional problems Allergies: Coded Allergies: AZATHIOPRINE (Verified Allergy, Unknown, Hives, 06/30/17) CEPHALEXIN (Unverified Allergy, Unknown, 06/29/17) CIMETIDINE (Verified Allergy, Unknown, Hives, 06/30/17) ERYTHROMYCIN BASE (Unverified Allergy, Unknown, 06/30/17) Shahid Keaton Syndrome Objective Last 24 Hour Vital Signs Date Time Temp Pulse Resp B/P (MAP) Pulse Ox O2 Delivery O2 Flow Rate FiO2 07/05/17 19:58 97.7 88 20 136/69 95 07/05/17 16:45 98.4 78 17 113/70 Room Air 07/05/17 11:28 98.2 89 20 111/65 95 07/05/17 10:05 89 117/81 07/05/17 08:20 97.3 76 20 100/67 97 07/05/17 04:00 97.9 69 16 130/76 95 Room Air 07/05/17 00:00 97.7 76 18 134/74 94 Room Air Intake and Output 07/04/17 07/05/17 19:00 07:00 Intake Total 240 ml 240 ml Balance 240 ml 240 ml Intake Oral 240 ml 240 ml # Voids 1 2 Laboratory Tests 07/05/17 05:40: White Blood Count 3.9L, Red Blood Count 4.36, Hemoglobin 13.3, Hematocrit 40.9, Mean Corpuscular Volume 94, Mean Corpuscular Hemoglobin 30.4, Mean Corpuscular Hemoglobin Concent 32.5, Red Cell Distribution Width 15.7H, Platelet Count 77L, Mean Platelet Volume 13.1H, Neutrophils (%) (Auto) , Lymphocytes (%) (Auto) , Monocytes (%) (Auto) , Eosinophils (%) (Auto) , Basophils (%) (Auto) , Differential Total Cells Counted 100, Neutrophils % (Manual) 48, Lymphocytes % ( Manual) 36, Monocytes % (Manual) 10, Eosinophils % (Manual) 6H, Basophils % ( Manual) 0, Band Neutrophils 0, Platelet Estimate DecreasedL, Platelet Morphology Normal, Anisocytosis 1+, Erythrocyte Sedimentation Rate 8, Sodium Level 142, Potassium Level 3.8, Chloride Level 110H, Carbon Dioxide Level 25, Anion Gap 7, Blood Urea Nitrogen 6L, Creatinine 0.9, Estimat Glomerular Filtration Rate > 60, Glucose Level 84, Calcium Level 8.0L, Phosphorus Level 1.9L, Magnesium Level 1.9, Total Bilirubin 1.1H, Direct Bilirubin 0.5H, Aspartate Amino Transf (AST/SGOT) 32, Alanine Aminotransferase (ALT/SGPT) 30, Alkaline Phosphatase 157H, Ammonia 79H, C-Reactive Protein, Quantitative 5.9H, Total Protein 5.7L, Albumin 2.0L, Globulin 3.7, Albumin/Globulin Ratio 0.5L, Amylase Level 93, Lipase 184 Height (Feet): 5 Height (Inches): 5.00 Weight (Pounds): 145 General Appearance: no apparent distress, alert, agitated Neurologic: alert, responsive, depressed affect Matt Oconnor M.D. Jul 05, 2017 20:52
--- NOTE | 2017-07-05 20:55 | Geriatric Progress Note ---
Assessment/Plan Assessment/Plan encephalopathy due to [facility] -seroquel 25mg daily Subjective Interval Events 07/04/17 Mood/Memory: Reports: prior hx, anxiety, depressed feelings Geriatric Geriatric Last 24 Hour Vital Signs Date Time Temp Pulse Resp B/P (MAP) Pulse Ox O2 Delivery O2 Flow Rate FiO2 07/05/17 19:58 97.7 88 20 136/69 95 07/05/17 16:45 98.4 78 17 113/70 Room Air 07/05/17 11:28 98.2 89 20 111/65 95 07/05/17 10:05 89 117/81 07/05/17 08:20 97.3 76 20 100/67 97 07/05/17 04:00 97.9 69 16 130/76 95 Room Air 07/05/17 00:00 97.7 76 18 134/74 94 Room Air Intake and Output 07/04/17 07/05/17 19:00 07:00 Intake Total 240 ml 240 ml Balance 240 ml 240 ml Intake Oral 240 ml 240 ml # Voids 1 2 Laboratory Tests Test 07/05/17 05:40 White Blood Count 3.9 K/UL (4.8-10.8) L Red Blood Count 4.36 M/UL (4.20-5.40) Hemoglobin 13.3 G/DL (12.0-16.0) Hematocrit 40.9 % (37.0-47.0) Mean Corpuscular Volume 94 FL (80-99) Mean Corpuscular Hemoglobin 30.4 PG (27.0-31.0) Mean Corpuscular Hemoglobin Concent 32.5 G/DL (32.0-36.0) Red Cell Distribution Width 15.7 % (11.6-14.8) H Platelet Count 77 K/UL (150-450) L Mean Platelet Volume 13.1 FL (6.5-10.1) H Neutrophils (%) (Auto) % (45.0-75.0) Lymphocytes (%) (Auto) % (20.0-45.0) Monocytes (%) (Auto) % (1.0-10.0) Eosinophils (%) (Auto) % (0.0-3.0) Basophils (%) (Auto) % (0.0-2.0) Differential Total Cells Counted 100 Neutrophils % (Manual) 48 % (45-75) Lymphocytes % (Manual) 36 % (20-45) Monocytes % (Manual) 10 % (1-10) Eosinophils % (Manual) 6 % (0-3) H Basophils % (Manual) 0 % (0-2) Band Neutrophils 0 % (0-8) Platelet Estimate Decreased L Platelet Morphology Normal Anisocytosis 1+ Erythrocyte Sedimentation Rate 8 MM/HR (0-30) Sodium Level 142 MMOL/L (136-145) Potassium Level 3.8 MMOL/L (3.5-5.1) Chloride Level 110 MMOL/L (98-107) H Carbon Dioxide Level 25 MMOL/L (21-32) Anion Gap 7 mmol/L (5-15) Blood Urea Nitrogen 6 mg/dL (7-18) L Creatinine 0.9 MG/DL (0.55-1.30) Estimat Glomerular Filtration Rate > 60 mL/min (>60) Glucose Level 84 MG/DL (74-106) Calcium Level 8.0 MG/DL (8.5-10.1) L Phosphorus Level 1.9 MG/DL (2.5-4.9) L Magnesium Level 1.9 MG/DL (1.5-2.4) Total Bilirubin 1.1 MG/DL (0.2-1.0) H Direct Bilirubin 0.5 MG/DL (0.0-0.3) H Aspartate Amino Transf (AST/SGOT) 32 U/L (15-37) Alanine Aminotransferase (ALT/SGPT) 30 U/L (12-78) Alkaline Phosphatase 157 U/L (46-116) H Ammonia 79 umol/L (11-32) H C-Reactive Protein, Quantitative 5.9 mg/dL (0.00-0.90) H Total Protein 5.7 G/DL (6.4-8.2) L Albumin 2.0 G/DL (3.4-5.0) L Globulin 3.7 g/dL Albumin/Globulin Ratio 0.5 (1.0-2.7) L Amylase Level 93 U/L (10-110) Lipase 184 U/L (73-393) Current Medications Medications (Trade) Dose Ordered Sig/Raisa Route PRN Reason Start Time Stop Time Status Last Admin Dose Admin Acetaminophen (Tylenol) 650 mg Q4H PRN ORAL fever 06/30/17 06:15 07/30/17 06:14 07/03/17 22:25 Acetaminophen/ Hydrocodone Bitart ([place] 5/325) 1 tab Q4H PRN ORAL Moderate Pain (Pain Scale 4-6) 07/05/17 12:30 07/12/17 12:29 Al Hydroxide/Mg Hydroxide (Mylanta II) 30 ml Q6H PRN ORAL dyspepsia 06/30/17 06:15 07/30/17 06:14 Amlodipine Besylate (Norvasc) 2.5 mg DAILY ORAL 06/30/17 09:00 07/30/17 08:59 07/05/17 10:05 Dextrose (Dextrose 50%) STAT PRN IV Hypoglycemia 06/30/17 06:15 07/30/17 06:14 Diphenhydramine HCl (Benadryl) 25 mg Q6H PRN ORAL Itching/Pruritis 06/30/17 06:15 07/30/17 06:14 Lactulose (Cephulac) 20 gm THREE TIMES A DAY ORAL 07/03/17 09:00 08/02/17 08:59 07/05/17 13:34 Levetiracetam (Keppra) 250 mg Q12HR ORAL 07/04/17 12:15 08/03/17 12:14 07/05/17 10:04 Levothyroxine Sodium (Synthroid) 25 mcg DAILY@0630 ORAL 06/30/17 07:00 07/30/17 06:59 07/05/17 05:50 Magnesium Oxide (Mag-Ox 400mg) 400 mg THREE TIMES A DAY ORAL 07/03/17 13:00 08/02/17 12:59 07/05/17 18:42 Nitroglycerin (Ntg) 0.4 mg Q5M X 3 DOSES PRN SL Prn Chest Pain 06/30/17 06:15 07/30/17 06:14 Ondansetron HCl (Zofran) 4 mg Q6H PRN IVP Nausea & Vomiting 06/30/17 06:15 07/30/17 06:14 07/04/17 23:32 Pantoprazole (Protonix) 40 mg DAILY IVP 07/01/17 16:30 07/31/17 16:29 07/05/17 10:04 Polyethylene Glycol (Miralax) 17 gm HSPRN PRN ORAL Constipation 06/30/17 06:15 07/30/17 06:14 Quetiapine Fumarate (SEROquel) 25 mg DAILY ORAL 06/30/17 09:00 07/30/17 08:59 07/05/17 10:04 Rifaximin (Xifaxan) 550 mg EVERY 12 HOURS ORAL 06/30/17 21:00 07/07/17 20:59 07/05/17 10:04 Temazepam (Restoril) 15 mg HSPRN PRN ORAL Insomnia 06/30/17 06:15 07/07/17 06:14 07/04/17 20:19 Ursodiol (Actigall) 300 mg TWICE A DAY ORAL 06/30/17 09:00 07/30/17 08:59 07/05/17 18:42 Height (Feet): 5 Height (Inches): 5.00 Weight (Pounds): 145 General Appearance: no apparent distress, alert, mild distress Neurologic: alert, responsive Psychiatric Behavior: cooperative Language/Speech: intact Orientation: person, place Affect: appropriate Matt Oconnor M.D. Jul 05, 2017 20:55
--- NOTE | 2017-07-06 17:34 | Discharge Summary ---
Discharge Summary Hospital Course Date of Admission Jun 30, 2017 at 03:18 Date of Discharge Jul 05, 2017 at 20:20 Admitting Diagnosis hepatic encephalopathy HPI Viviane Sweet is a 66 year old female who was admitted on Jun 30, 2017 at 03:18 for Hepatic Encephalopathy Hospital Course [id number] Discharge Discharge Disposition Patient was discharged to SNF/Subacute Facility(03) Discharge Diagnoses: Awa Ling NP Jul 06, 2017 17:34
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
== END 2017-07-05 20:20 | DRG 442 ==
LOC: EDBD 23:47 → EMR 23:59 → 4E 06-30 03:18 → EDBEDREQ 06-30 03:36 → 4E 07-02 11:25
DX: K72.00 Acute and subacute hepatic failure without coma (principal); N39.0 Urinary tract infection, site not specified; K74.3 Primary biliary cirrhosis; G31.83 Neurocognitive disorder with Lewy bodies; I10 Essential (primary) hypertension; F02.80 Dementia in other diseases classified elsewhere, unspecified severity, without behavioral disturbance, psychotic disturbance, mood disturbance, and anxiety; Z88.1 Allergy status to other antibiotic agents; Z88.8 Allergy status to other drugs, medicaments and biological substances; Z91.14 Patient's other noncompliance with medication regimen; F31.9 Bipolar disorder, unspecified; E03.9 Hypothyroidism, unspecified; G40.909 Epilepsy, unspecified, not intractable, without status epilepticus; G89.29 Other chronic pain; M54.5 Low back pain; G30.9 Alzheimer's disease, unspecified; Z23 Encounter for immunization
CPT/HCPCS: 36415; 70450; 71045; 72114; 76700; 76705; 80053; 80299; 81003; 82105; 82140; 82150; 82248; 82550; 82553; 83690; 83735; 84100; 84484; 85007; 85025; 85610; 85651; 85730; 86039; 86140; 86235; 86256; 86705; 86709; 86803; 87081; 87086; 87181; 87340; 90732; 93970; 99285; J2405